=== PATIENT | female | born 1940 | race Caucasian/White ===

== ENCOUNTER 2025-01-23 06:32 | Emergency (ER) | payer OTHER ==
--- OUTSIDE RECORDS SUMMARY | 2025-01-23 06:46 | XMS REPORT | Continuity of Care Document ---
Author Name Unknown Address [address] [place] [address] [facility] Address [address] [place] [address] Care Team Providers Care Senior Bioinformatics Scientist Name Role Phone PCP, PATIENT DOES NOT HAVE A Primary Care Physic florencia Unavailable SYSTEM, PROVIDER NOT IN Attending Clinician Unav ailable CHUCKY HEATH Attending Clinician Unavailable KIANA BURNETT Attending Clinician Unavailable TANIA GARCIA Attending Clinician Unavaila VIDAL Andrade Attending Clinician Unavailable ADELINE ELLSWORTH Attending Clinician UnaAMAURI Cardona Attending Clinician UnavailTAYA Gillespie Attending Clinician UnavailSREEKANTH Mccain Attending Clinician Unavailable LEVAR GRACIA Attending Clinician Unavailable TRACY JIN Attending Clinician Unavailable Tracy Sena S Attending Clinician CHUCKY HEATH Admitting Clinician Unavailable TAYA ZURITA Admitting Clinician Unavaila TRACY Gan Admitting Clinician Unavailable Payers Payer Name Policy Type Policy Number Effective Date Expirati on Date Source MEDICARE PART A AND B [id number] 2004 00:00:00 [employer] [id number] 2015 00:00:00 MEDICARE PART A \T\ B [id number] 2004 00:00:00 PRINCE HERNADEZ [id number] 2004 00:00:00 Problems Condition Name Condition Details Condition Category Status Onset Date Resolution Date Last Treatment Date Treating Clinician Comments Source No known active problems No known active problems Disease [facility] Allergies, Adverse Reactions, Alerts Allergy Name Allergy Type Status Severity Reaction(s) Onset Date Inactive Date Treating Clinician Comments Source SULFAMET HOXAZOLE -TRIMETH OPRIM DRUG Active Hives 5-0 6-13 00:00: 00 MD Demarco browne SULFAMET HOXAZOLE -TRIMETH OPRIM DRUG Active Hives 5-0 6-13 00:00: 00 MD Demarco browne SULFAMET HOXAZOLE -TRIMETH OPRIM DRUG Active Hives 5-0 6-13 00:00: 00 MD Demarco browne SULFAMET HOXAZOLE -TRIMETH OPRIM DRUG Active Hives 5-0 6-13 00:00: 00 MD Demarco browne SULFAMET HOXAZOLE -TRIMETH OPRIM DRUG Active Hives 5-0 6-13 00:00: 00 MD Demarco browne SULFAMET HOXAZOLE -TRIMETH OPRIM DRUG Active Hives 5-0 6-13 00:00: 00 MD Demarco browne SULFAMET HOXAZOLE -TRIMETH OPRIM DRUG Active Hives 5-0 6-13 00:00: 00 MD Demarco browne SULFAMET HOXAZOLE -TRIMETH OPRIM DRUG Active Hives 5-0 6-13 00:00: 00 MD Demarco browne SULFAMET HOXAZOLE -TRIMETH OPRIM DRUG Active Hives 5-0 6-13 00:00: 00 MD Demarco browne SULFAMET HOXAZOLE -TRIMETH OPRIM DRUG Active Hives 5-0 6-13 00:00: 00 MD Demarco borwne SULFAMET HOXAZOLE -TRIMETH OPRIM DRUG Active Hives 5-0 6-13 00:00: 00 MD Demarco browne SULFAMET HOXAZOLE -TRIMETH OPRIM DRUG Active Hives 5-0 6-13 00:00: 00 MD Demarco browne SULFAMET HOXAZOLE -TRIMETH OPRIM DRUG Active Hives 5-0 6-13 00:00: 00 MD Demarco browne SULFAMET HOXAZOLE -TRIMETH OPRIM DRUG Active Hives 5-0 6-13 00:00: 00 MD Demarco browne SULFAMET HOXAZOLE -TRIMETH OPRIM DRUG Active Hives 5-0 6-13 00:00: 00 MD Demarco browne SULFAMET HOXAZOLE -TRIMETH OPRIM DRUG Active Hives 5-0 6-13 00:00: 00 MD Demarco browne SULFAMET HOXAZOLE -TRIMETH OPRIM DRUG Active Hives 5-0 6-13 00:00: 00 MD Demarco browne SULFAMET HOXAZOLE -TRIMETH OPRIM DRUG Active Hives 5-0 6-13 00:00: 00 MD Demarco browne OXYCODON E DRUG INGREDI Active High Nausea 5-0 2-19 00:00: 00 MD Demarco browne OXYCODON E DRUG INGREDI Active High Nausea 5-0 2-19 00:00: 00 MD Demarco browne OXYCODON E DRUG INGREDI Active High Nausea 5-0 2-19 00:00: 00 MD Demarco browne OXYCODON E DRUG INGREDI Active High Nausea 5-0 2-19 00:00: 00 MD Demarco browne OXYCODON E DRUG INGREDI Active High Nausea 5-0 2-19 00:00: 00 MD Demarco browne OXYCODON E DRUG INGREDI Active High Nausea 5-0 2-19 00:00: 00 MD Demarco browne OXYCODON E DRUG INGREDI Active High Nausea 5-0 2-19 00:00: 00 MD Demarco browne OXYCODON E DRUG INGREDI Active High Nausea 5-0 2-19 00:00: 00 MD Demarco browne OXYCODON E DRUG INGREDI Active High Nausea 5-0 2-19 00:00: 00 MD Demarco browne OXYCODON E DRUG INGREDI Active High Nausea 5-0 2-19 00:00: 00 MD Demarco browne OXYCODON E DRUG INGREDI Active High Nausea 5-0 2-19 00:00: 00 MD Deamrco browne OXYCODON E DRUG INGREDI Active High Nausea 5-0 2-19 00:00: 00 MD Demarco browne OXYCODON E DRUG INGREDI Active High Nausea 5-0 2-19 00:00: 00 MD Demarco browne OXYCODON E DRUG INGREDI Active High Nausea 5-0 2-19 00:00: 00 MD Demarco browne OXYCODON E DRUG INGREDI Active High Nausea 5-0 2-19 00:00: 00 MD Demarco browne OXYCODON E DRUG INGREDI Active High Nausea 2025-0 2-19 00:00: 00 Andnicole browne OXYCODON E DRUG INGREDI Active High Nausea 2025-0 2-19 00:00: 00 Andnicole browne OXYCODON E DRUG INGREDI Active High Nausea 2025-0 2-19 00:00: 00 Andnicole browne OXYCODON E DRUG INGREDI Active High Nausea 2025-0 2-19 00:00: 00 MD Demarco browne OXYCODON E DRUG INGREDI Active High Nausea 2025-0 2-19 00:00: 00 Andnicole browne OXYCODON E DRUG INGREDI Active High Nausea 5-0 2-19 00:00: 00 MD Demarco browne OXYCODON E DRUG INGREDI Active High Nausea 5-0 2-19 00:00: 00 MD Demarco browne OXYCODON E DRUG INGREDI Active High Nausea 5-0 2-19 00:00: 00 MD Demarco browne OXYCODON E DRUG INGREDI Active High Nausea 5-0 2-19 00:00: 00 MD Demarco browne OXYCODON E DRUG INGREDI Active High Nausea 2025-0 2-19 00:00: 00 MD Demarco browne OXYCODON E DRUG INGREDI Active High Nausea 2025-0 2-19 00:00: 00 MD Demarco browne OXYCODON E DRUG INGREDI Active High Nausea 2025-0 2-19 00:00: 00 MD Demarco browne OXYCODON E DRUG INGREDI Active High Nausea 2025-0 2-19 00:00: 00 MD Demarco browne OXYCODON E DRUG INGREDI Active High Nausea 2025-0 2-19 00:00: 00 MD Demarco browne OXYCODON E DRUG INGREDI Active High Nausea 2025-0 2-19 00:00: 00 MD Demarco browne OXYCODON E DRUG INGREDI Active High Nausea 2025-0 2-19 00:00: 00 MD Demarco browne OXYCODON E DRUG INGREDI Active High Nausea 2025-0 2-19 00:00: 00 MD Demarco browne OXYCODON E DRUG INGREDI Active High Nausea 2025-0 2-19 00:00: 00 MD Demarco browne OXYCODON E DRUG INGREDI Active High Nausea 2025-0 2-19 00:00: 00 MD Demarco browne OXYCODON E DRUG INGREDI Active High Nausea 2025-0 2-19 00:00: 00 MD Demarco browne OXYCODON E DRUG INGREDI Active High Nausea 2025-0 2-19 00:00: 00 MD Demarco browne OXYCODON E DRUG INGREDI Active High Nausea 2025-0 2-19 00:00: 00 Andnicole browne OXYCODON E DRUG INGREDI Active High Nausea 2025-0 2-19 00:00: 00 MD Demarco browne OXYCODON E DRUG INGREDI Active High Nausea 2025-0 2-19 00:00: 00 Andnicole browne OXYCODON E DRUG INGREDI Active High Nausea 2025-0 2-19 00:00: 00 MD Demarco browne OXYCODON E DRUG INGREDI Active High Nausea 5-0 2-19 00:00: 00 MD Demarco browne OXYCODON E DRUG INGREDI Active High Nausea 2025-0 2-19 00:00: 00 MD Demarco browne OXYCODON E DRUG INGREDI Active High Nausea 2025-0 2-19 00:00: 00 MD Demarco browne OXYCODON E DRUG INGREDI Active High Nausea 2025-0 2-19 00:00: 00 MD Demarco browne OXYCODON E DRUG INGREDI Active High Nausea 2025-0 2-19 00:00: 00 MD Demarco browne OXYCODON E DRUG INGREDI Active High Nausea 2025-0 2-19 00:00: 00 MD Demarco browne OXYCODON E DRUG INGREDI Active High Nausea 2025-0 2-19 00:00: 00 MD Demarco browne OXYCODON E DRUG INGREDI Active High Nausea 2025-0 2-19 00:00: 00 MD Demarco browne OXYCODON E DRUG INGREDI Active High Nausea 2025-0 2-19 00:00: 00 MD Demarco browne OXYCODON E DRUG INGREDI Active High Nausea 2025-0 2-19 00:00: 00 MD Demarco browne OXYCODON E DRUG INGREDI Active High Nausea 2025-0 2-19 00:00: 00 MD Demarco browne OXYCODON E DRUG INGREDI Active High Nausea 2025-0 2-19 00:00: 00 MD Anderso n OXYCODON E DRUG INGREDI Active High Nausea 2025-0 2-19 00:00: 00 Andnicole browne OXYCODON E DRUG INGREDI Active Nausea 2025-0 2-19 00:00: 00 Andnicole browne OXYCODON E DRUG INGREDI Active Nausea 5-0 2-19 00:00: 00 Andnicole browne OXYCODON E DRUG INGREDI Active Nausea 2025-0 2-19 00:00: 00 Andnicole browne OXYCODON E DRUG INGREDI Active Nausea 2025-0 2-19 00:00: 00 MD Demarco browne OXYCODON E DRUG INGREDI Active Nausea 2025-0 2-19 00:00: 00 Andnicole browne OXYCODON E DRUG INGREDI Active Nausea 5-0 2-19 00:00: 00 MD Demarco browne OXYCODON E DRUG INGREDI Active Nausea 5-0 2-19 00:00: 00 MD Demarco browne OXYCODON E DRUG INGREDI Active High Nausea 5-0 2-19 00:00: 00 MD Demarco browne OXYCODON E DRUG INGREDI Active High Nausea 5-0 2-19 00:00: 00 MD Demarco browne OXYCODON E DRUG INGREDI Active High Nausea 2025-0 2-19 00:00: 00 MD Demarco browne OXYCODON E DRUG INGREDI Active High Nausea 2025-0 2-19 00:00: 00 MD Demarco browne OXYCODON E DRUG INGREDI Active High Nausea 2025-0 2-19 00:00: 00 MD Demarco browne OXYCODON E DRUG INGREDI Active High Nausea 2025-0 2-19 00:00: 00 MD Demarco browne OXYCODON E DRUG INGREDI Active High Nausea 2025-0 2-19 00:00: 00 MD Demarco browne OXYCODON E DRUG INGREDI Active High Nausea 2025-0 2-19 00:00: 00 MD Demarco browne OXYCODON E DRUG INGREDI Active High Nausea 2025-0 2-19 00:00: 00 MD Demarco browne OXYCODON E DRUG INGREDI Active High Nausea 2025-0 2-19 00:00: 00 MD Demarco browne OXYCODON E DRUG INGREDI Active High Nausea 2025-0 2-19 00:00: 00 MD Demarco browne OXYCODON E DRUG INGREDI Active High Nausea 5-0 2-19 00:00: 00 MD Demacro browne OXYCODON E DRUG INGREDI Active High Nausea 5-0 2-19 00:00: 00 MD Demarco browne OXYCODON E DRUG INGREDI Active High Nausea 5-0 2-19 00:00: 00 MD Demarco browne OXYCODON E DRUG INGREDI Active High Nausea 5-0 2-19 00:00: 00 MD Demarco browne OXYCODON E DRUG INGREDI Active High Nausea 5-0 2-19 00:00: 00 MD Demarco browne OXYCODON E DRUG INGREDI Active High Nausea 5-0 2-19 00:00: 00 MD Demarco browne Nitrofur antoin Monohyd/ M-Cryst Propensi ty to adverse reaction s Active Anaphylaxis 2021-1 0-04 00:00: 00 [facility] Penicill ins Propensi ty to adverse reaction s Active Hives 2021-1 0-04 00:00: 00 [facility] Sulfa (Sulfona mide Antibiot ics) Propensi ty to adverse reaction s Active Rash 2021-1 0-04 00:00: 00 [facility] NITROFUR ANTOIN MONOHYD/ M-CRYST DRUG Active Anaphylaxis 2021-1 0-04 00:00: 00 [facility] PENICILL INS Drug Class Active Hives 2021-1 0-04 00:00: 00 [facility] SULFA (SULFONA MIDE ANTIBIOT ICS) Drug Class Active Rash 2-1 0-04 00:00: 00 [facility] TRAMADOL DRUG INGREDI Active 2020-0 2-10 00:00: 00 MD Demarco browne TRAMADOL DRUG INGREDI Active 2020-0 2-10 00:00: 00 MD Demarco browne TRAMADOL DRUG INGREDI Active Low Nausea 2020-0 2-10 00:00: 00 MD Demarco browne TRAMADOL DRUG INGREDI Active Low Nausea 2020-0 2-10 00:00: 00 MD Demarco browne TRAMADOL DRUG INGREDI Active Low Nausea 2020-0 2-10 00:00: 00 MD Demarco browne TRAMADOL DRUG INGREDI Active Low Nausea 2020-0 2-10 00:00: 00 MD Demarco browne TRAMADOL DRUG INGREDI Active Low Nausea 2020-0 2-10 00:00: 00 MD Demarco browne TRAMADOL DRUG INGREDI Active Low Nausea 2020-0 2-10 00:00: 00 MD Demarco browne TRAMADOL DRUG INGREDI Active Low Nausea 2020-0 2-10 00:00: 00 Andnicole browne TRAMADOL DRUG INGREDI Active Low Nausea 2020-0 2-10 00:00: 00 MD Demarco browne TRAMADOL DRUG INGREDI Active 2020-0 2-10 00:00: 00 MD Demarco browne TRAMADOL DRUG INGREDI Active Low Nausea 2020-0 2-10 00:00: 00 MD Demarco browne TRAMADOL DRUG INGREDI Active Low Nausea 2020-0 2-10 00:00: 00 MD Demarco browne TRAMADOL DRUG INGREDI Active Low Nausea 2020-0 2-10 00:00: 00 MD Demarco browne TRAMADOL DRUG INGREDI Active Low Nausea 2020-0 2-10 00:00: 00 MD Demarco browne TRAMADOL DRUG INGREDI Active Low Nausea 2020-0 2-10 00:00: 00 MD Demarco browne TRAMADOL DRUG INGREDI Active Low Nausea 2020-0 2-10 00:00: 00 MD Demarco browne TRAMADOL DRUG INGREDI Active Low Nausea 2020-0 2-10 00:00: 00 MD Demarco browne TRAMADOL DRUG INGREDI Active Low Nausea 2020-0 2-10 00:00: 00 MD Demarco browne TRAMADOL DRUG INGREDI Active 2020-0 2-10 00:00: 00 MD Demarco browne TRAMADOL DRUG INGREDI Active Low Nausea 2020-0 2-10 00:00: 00 MD Demarco browne TRAMADOL DRUG INGREDI Active Low Nausea 2020-0 2-10 00:00: 00 MD Demarco browne TRAMADOL DRUG INGREDI Active Low Nausea 2020-0 2-10 00:00: 00 MD Demarco browne TRAMADOL DRUG INGREDI Active Low Nausea 2020-0 2-10 00:00: 00 MD Demarco browne TRAMADOL DRUG INGREDI Active Low Nausea 2020-0 2-10 00:00: 00 MD Demarco browne TRAMADOL DRUG INGREDI Active Low Nausea 2020-0 2-10 00:00: 00 MD Demarco browne TRAMADOL DRUG INGREDI Active Low Nausea 2020-0 2-10 00:00: 00 MD Demarco browne TRAMADOL DRUG INGREDI Active Low Nausea 2020-0 2-10 00:00: 00 MD Demarco browne TRAMADOL DRUG INGREDI Active 2020-0 2-10 00:00: 00 MD Demarco browne TRAMADOL DRUG INGREDI Active Low Nausea 2020-0 2-10 00:00: 00 MD Demarco browne TRAMADOL DRUG INGREDI Active Low Nausea 2020-0 2-10 00:00: 00 MD Demarco browne TRAMADOL DRUG INGREDI Active Low Nausea 2020-0 2-10 00:00: 00 MD Demarco browne TRAMADOL DRUG INGREDI Active Low Nausea 2020-0 2-10 00:00: 00 MD Demarco browne TRAMADOL DRUG INGREDI Active Low Nausea 2020-0 2-10 00:00: 00 MD Demarco browne TRAMADOL DRUG INGREDI Active Low Nausea 2020-0 2-10 00:00: 00 MD Demarco browne TRAMADOL DRUG INGREDI Active Low Nausea 2020-0 2-10 00:00: 00 MD Demarco browne TRAMADOL DRUG INGREDI Active Low Nausea 2020-0 2-10 00:00: 00 MD Dmearco browne TRAMADOL DRUG INGREDI Active Low Nausea 2020-0 2-10 00:00: 00 MD Demarco browne TRAMADOL DRUG INGREDI Active 2020-0 2-10 00:00: 00 MD Demarco browne TRAMADOL DRUG INGREDI Active Low Nausea 2020-0 2-10 00:00: 00 MD Demarco browne TRAMADOL DRUG INGREDI Active Low Nausea 2020-0 2-10 00:00: 00 MD Demarco browne TRAMADOL DRUG INGREDI Active Low Nausea 2020-0 2-10 00:00: 00 MD Demarco browne TRAMADOL DRUG INGREDI Active Low Nausea 2020-0 2-10 00:00: 00 MD Demarco browne TRAMADOL DRUG INGREDI Active Low Nausea 2020-0 2-10 00:00: 00 MD Demarco browne TRAMADOL DRUG INGREDI Active Low Nausea 2020-0 2-10 00:00: 00 MD Demarco browne TRAMADOL DRUG INGREDI Active Low Nausea 2020-0 2-10 00:00: 00 MD Demarco browne TRAMADOL DRUG INGREDI Active 2020-0 2-10 00:00: 00 MD Demarco browne TRAMADOL DRUG INGREDI Active Low Nausea 2020-0 2-10 00:00: 00 MD Demarco browne TRAMADOL DRUG INGREDI Active Low Nausea 2020-0 2-10 00:00: 00 MD Demarco browne TRAMADOL DRUG INGREDI Active Low Nausea 2020-0 2-10 00:00: 00 MD Demarco browne TRAMADOL DRUG INGREDI Active Low Nausea 2020-0 2-10 00:00: 00 MD Demarco browne TRAMADOL DRUG INGREDI Active Low Nausea 2020-0 2-10 00:00: 00 MD Demarco browne TRAMADOL DRUG INGREDI Active Low Nausea 2020-0 2-10 00:00: 00 MD Demarco browne TRAMADOL DRUG INGREDI Active 2020-0 2-10 00:00: 00 MD Demarco browne TRAMADOL DRUG INGREDI Active Low Nausea 2020-0 2-10 00:00: 00 MD Demarco browne TRAMADOL DRUG INGREDI Active Low Nausea 2020-0 2-10 00:00: 00 MD Demarco browne TRAMADOL DRUG INGREDI Active Low Nausea 2020-0 2-10 00:00: 00 MD Demarco browne TRAMADOL DRUG INGREDI Active Low Nausea 2020-0 2-10 00:00: 00 MD Demarco browne TRAMADOL DRUG INGREDI Active Low Nausea 2020-0 2-10 00:00: 00 MD Demarco browne TRAMADOL DRUG INGREDI Active Low Nausea 2020-0 2-10 00:00: 00 MD Demarco browne TRAMADOL DRUG INGREDI Active Low Nausea 2020-0 2-10 00:00: 00 MD Demarco browne TRAMADOL DRUG INGREDI Active 2020-0 2-10 00:00: 00 MD Demarco browne TRAMADOL DRUG INGREDI Active Low Nausea 2020-0 2-10 00:00: 00 MD Demarco browne TRAMADOL DRUG INGREDI Active 2020-0 2-10 00:00: 00 MD Demarco browne TRAMADOL DRUG INGREDI Active 2020-0 2-10 00:00: 00 MD Demarco browne TRAMADOL DRUG INGREDI Active 2020-0 2-10 00:00: 00 MD Demarco browne TRAMADOL DRUG INGREDI Active 2020-0 2-10 00:00: 00 MD Demarco browne TRAMADOL DRUG INGREDI Active 2020-0 2-10 00:00: 00 MD Demarco browne TRAMADOL DRUG INGREDI Active 2020-0 2-10 00:00: 00 MD Demarco browne TRAMADOL DRUG INGREDI Active 2020-0 2-10 00:00: 00 MD Demarco browne TRAMADOL DRUG INGREDI Active 2020-0 2-10 00:00: 00 MD Demarco browne TRAMADOL DRUG INGREDI Active 2020-0 2-10 00:00: 00 MD Demarco browne TRAMADOL DRUG INGREDI Active 2020-0 2-10 00:00: 00 MD Demarco browne TRAMADOL DRUG INGREDI Active 2020-0 2-10 00:00: 00 MD Demarco browne TRAMADOL DRUG INGREDI Active 2020-0 2-10 00:00: 00 MD Demarco browne TRAMADOL DRUG INGREDI Active 2020-0 2-10 00:00: 00 MD Demarco browne TRAMADOL DRUG INGREDI Active 2020-0 2-10 00:00: 00 MD Demarco browne TRAMADOL DRUG INGREDI Active 2020-0 2-10 00:00: 00 MD Demarco browne TRAMADOL DRUG INGREDI Active 2020-0 2-10 00:00: 00 MD Demarco browne TRAMADOL DRUG INGREDI Active 2020-0 2-10 00:00: 00 MD Demarco browne TRAMADOL DRUG INGREDI Active 2020-0 2-10 00:00: 00 MD Demarco browne TRAMADOL DRUG INGREDI Active 2020-0 2-10 00:00: 00 MD Demarco browne TRAMADOL DRUG INGREDI Active 2020-0 2-10 00:00: 00 MD Demarco browne TRAMADOL DRUG INGREDI Active 2020-0 2-10 00:00: 00 MD Demarco browne TRAMADOL DRUG INGREDI Active 2020-0 2-10 00:00: 00 MD Demarco browne TRAMADOL DRUG INGREDI Active 2020-0 2-10 00:00: 00 MD Demarco browne TRAMADOL DRUG INGREDI Active 2020-0 2-10 00:00: 00 MD Demarco browne TRAMADOL DRUG INGREDI Active 2020-0 2-10 00:00: 00 MD Demarco browne TRAMADOL DRUG INGREDI Active 2020-0 2-10 00:00: 00 MD Demarco browne TRAMADOL DRUG INGREDI Active 2020-0 2-10 00:00: 00 MD Demarco browne TRAMADOL DRUG INGREDI Active Nausea 2020-0 2-10 00:00: 00 MD Demarco browne TRAMADOL DRUG INGREDI Active Nausea 2020-0 2-10 00:00: 00 MD Demarco browne TRAMADOL DRUG INGREDI Active Nausea 2020-0 2-10 00:00: 00 MD Demarco browne TRAMADOL DRUG INGREDI Active Nausea 2020-0 2-10 00:00: 00 MD Demarco browne TRAMADOL DRUG INGREDI Active Nausea 2020-0 2-10 00:00: 00 MD Demarco browne TRAMADOL DRUG INGREDI Active Nausea 2020-0 2-10 00:00: 00 MD Demarco browne TRAMADOL DRUG INGREDI Active Nausea 2020-0 2-10 00:00: 00 MD Demarco browne TRAMADOL DRUG INGREDI Active Nausea 2020-0 2-10 00:00: 00 MD Demarco browne TRAMADOL DRUG INGREDI Active Nausea 2020-0 2-10 00:00: 00 MD Demarco browne TRAMADOL DRUG INGREDI Active Nausea 2020-0 2-10 00:00: 00 MD Demarco browne TRAMADOL DRUG INGREDI Active 2020-0 2-10 00:00: 00 MD Demarco browne TRAMADOL DRUG INGREDI Active Nausea 2020-0 2-10 00:00: 00 MD Demarco browne TRAMADOL DRUG INGREDI Active Nausea 2020-0 2-10 00:00: 00 MD Demarco browne TRAMADOL DRUG INGREDI Active Nausea 2020-0 2-10 00:00: 00 MD Demarco browne TRAMADOL DRUG INGREDI Active Nausea 2020-0 2-10 00:00: 00 MD Demarco browne TRAMADOL DRUG INGREDI Active Nausea 2020-0 2-10 00:00: 00 MD Demarco browne TRAMADOL DRUG INGREDI Active Nausea 2020-0 2-10 00:00: 00 MD Demarco browne TRAMADOL DRUG INGREDI Active Nausea 2020-0 2-10 00:00: 00 MD Demarco browne TRAMADOL DRUG INGREDI Active Nausea 2020-0 2-10 00:00: 00 MD Demarco browne TRAMADOL DRUG INGREDI Active Low Nausea 2020-0 2-10 00:00: 00 MD Demarco browne TRAMADOL DRUG INGREDI Active Low Nausea 2020-0 2-10 00:00: 00 MD Demarco browne TRAMADOL DRUG INGREDI Active Low Nausea 2020-0 2-10 00:00: 00 MD Demarco browne TRAMADOL DRUG INGREDI Active Low Nausea 2020-0 2-10 00:00: 00 MD Demarco browne TRAMADOL DRUG INGREDI Active Low Nausea 2020-0 2-10 00:00: 00 MD Demarco browne TRAMADOL DRUG INGREDI Active 2020-0 2-10 00:00: 00 Andnicole browne TRAMADOL DRUG INGREDI Active Low Nausea 2020-0 2-10 00:00: 00 Andnicole browne TRAMADOL DRUG INGREDI Active Low Nausea 2020-0 2-10 00:00: 00 Andnicole browne TRAMADOL DRUG INGREDI Active Low Nausea 2020-0 2-10 00:00: 00 MD Demarco browne TRAMADOL DRUG INGREDI Active Low Nausea 2020-0 2-10 00:00: 00 MD Demarco browne TRAMADOL DRUG INGREDI Active Low Nausea 2020-0 2-10 00:00: 00 MD Demarco browne TRAMADOL DRUG INGREDI Active Low Nausea 2020-0 2-10 00:00: 00 MD Demarco browne TRAMADOL DRUG INGREDI Active Low Nausea 2020-0 2-10 00:00: 00 MD Demarco browne TRAMADOL DRUG INGREDI Active Low Nausea 2020-0 2-10 00:00: 00 MD Demarco browne TRAMADOL DRUG INGREDI Active Low Nausea 2020-0 2-10 00:00: 00 MD Demarco browne TRAMADOL DRUG INGREDI Active Low Nausea 2020-0 2-10 00:00: 00 MD Demarco browne TRAMADOL DRUG INGREDI Active Low Nausea 2020-0 2-10 00:00: 00 MD Demarco browne TRAMADOL DRUG INGREDI Active Low Nausea 2020-0 2-10 00:00: 00 MD Demarco browne TRAMADOL DRUG INGREDI Active 2020-0 2-10 00:00: 00 MD Demarco browne TRAMADOL DRUG INGREDI Active Low Nausea 2020-0 2-10 00:00: 00 MD Demarco browne TRAMADOL DRUG INGREDI Active Low Nausea 2020-0 2-10 00:00: 00 MD Demarco browne TRAMADOL DRUG INGREDI Active Low Nausea 2020-0 2-10 00:00: 00 MD Demarco browne TRAMADOL DRUG INGREDI Active Low Nausea 2020-0 2-10 00:00: 00 MD Demarco browne [employer] INGREDI Active Low Nausea 2020-0 2-10 00:00: 00 MD Demarco browne [employer]AM[employer] INGREDI Active Low Nausea 2020-0 2-10 00:00: 00 MD Demarco browne [employer]AM[employer] INGREDI Active Low Nausea 2020-0 2-10 00:00: 00 MD Demarco browne TRAM[employer] INGREDI Active Low Nausea 2020-0 2-10 00:00: 00 MD Demarco browne [employer]AM[employer] INGREDI Active Low Nausea 2020-0 2-10 00:00: 00 MD Demarco browne [employer]AM[employer] INGREDI Active Low Nausea 2020-0 2-10 00:00: 00 Andnicole browne TRAM[employer] INGREDI Active 2020-0 2-10 00:00: 00 MD Demarco browne TRAM[employer] INGREDI Active Low Nausea 2020-0 2-10 00:00: 00 MD Demarco browne TRAM[employer]UG INGREDI Active Low Nausea 2020-0 2-10 00:00: 00 MD Demarco browne TRAM[employer] INGREDI Active Low Nausea 2020-0 2-10 00:00: 00 MD Demarco browne TRAM[employer] INGREDI Active Low Nausea 2020-0 2-10 00:00: 00 MD Demarco browne TRAM[employer] INGREDI Active Low Nausea 2020-0 2-10 00:00: 00 MD Demarco browne TRAM[employer] INGREDI Active Low Nausea 2020-0 2-10 00:00: 00 MD Demarco browne TRAM[employer] INGREDI Active Low Nausea 2020-0 2-10 00:00: 00 MD Demarco browne TRAM[employer] INGREDI Active Low Nausea 2020-0 2-10 00:00: 00 MD Demarco browne [employer]AM[employer] INGREDI Active 2020-0 2-10 00:00: 00 MD Demarco browne TRAM[employer] INGREDI Active Low Nausea 2020-0 2-10 00:00: 00 MD Demarco browne TRAM[employer] INGREDI Active Low Nausea 2020-0 2-10 00:00: 00 MD Demarco browne TRAM[employer] INGREDI Active Low Nausea 2020-0 2-10 00:00: 00 MD Demarco browne TRAM[employer] INGREDI Active Low Nausea 2020-0 2-10 00:00: 00 MD Demarco browne TRAM[employer] INGREDI Active Low Nausea 2020-0 2-10 00:00: 00 MD Demarco browne TRAM[employer] INGREDI Active Low Nausea 2020-0 2-10 00:00: 00 MD Demarco browne TRAM[employer] INGREDI Active 2020-0 2-10 00:00: 00 MD Demarco browne [employer]AM[employer] INGREDI Active Low Nausea 2020-0 2-10 00:00: 00 MD Demarco browne [employer]AM[employer] INGREDI Active Low Nausea 2020-0 2-10 00:00: 00 Andnicole browne TRAM[employer] INGREDI Active 2020-0 2-10 00:00: 00 MD Demarco browne TRAM[employer] INGREDI Active Low Nausea 2020-0 2-10 00:00: 00 Andnicole browne TRAM[employer] INGREDI Active Low Nausea 2020-0 2-10 00:00: 00 MD Demarco browne [employer]AM[employer] INGREDI Active Low Nausea 2020-0 2-10 00:00: 00 MD Demarco browne TRAM[employer] INGREDI Active Low Nausea 2020-0 2-10 00:00: 00 MD Demarco browne TRAM[employer] INGREDI Active Low Nausea 2020-0 2-10 00:00: 00 MD Demarco browne TRAM[employer]OL [employer] INGREDI Active Low Nausea 2020-0 2-10 00:00: 00 MD Demarco browne TRAM[employer] INGREDI Active Low Nausea 2020-0 2-10 00:00: 00 MD Demarco browne TRAM[employer] INGREDI Active Low Nausea 2020-0 2-10 00:00: 00 MD Demarco browne TRAM[employer] INGREDI Active Low Nausea 2020-0 2-10 00:00: 00 MD Demarco browne TRAM[employer]UG INGREDI Active Low Nausea 2020-0 2-10 00:00: 00 MD Demarco browne TRAM[employer] INGREDI Active Low Nausea 2020-0 2-10 00:00: 00 MD Demarco browne [employer]AM[employer] INGREDI Active 2020-0 2-10 00:00: 00 MD Demarco browne TRAM[employer] INGREDI Active Low Nausea 2020-0 2-10 00:00: 00 MD Demarco browne TRAM[employer] INGREDI Active Low Nausea 2020-0 2-10 00:00: 00 MD Demarco browne TRAM[employer] INGREDI Active Low Nausea 2020-0 2-10 00:00: 00 MD Demarco browne TRAM[employer]OL [employer] INGREDI Active Low Nausea 2020-0 2-10 00:00: 00 MD Demarco browne TRAM[employer]OL DRUG INGREDI Active Low Nausea 2020-0 2-10 00:00: 00 MD Demarco browne TRAM[employer]OL [employer]UG INGREDI Active Low Nausea 2020-0 2-10 00:00: 00 MD Demarco browne TRAM[employer]OL [employer]UG INGREDI Active Low Nausea 2020-0 2-10 00:00: 00 Andnicole browne [employer]AM[employer] INGREDI Active Low Nausea 2020-0 2-10 00:00: 00 Andnicole browne TRAM[employer] INGREDI Active Low Nausea 2020-0 2-10 00:00: 00 Andnicole browne TRAMADOL DRUG INGREDI Active Low Nausea 2020-0 2-10 00:00: 00 Andnicole browne TRAMADOL DRUG INGREDI Active Low Nausea 2020-0 2-10 00:00: 00 Andnicole browne TRAMADOL DRUG INGREDI Active Low Nausea 2020-0 2-10 00:00: 00 MD Demarco browne TRAMADOL DRUG INGREDI Active 2020-0 2-10 00:00: 00 Andnicole browne TRAMADOL DRUG INGREDI Active Low Nausea 2020-0 2-10 00:00: 00 MD Demarco browne TRAMADOL DRUG INGREDI Active Low Nausea 2020-0 2-10 00:00: 00 Andnicole browne TRAMADOL DRUG INGREDI Active Low Nausea 2020-0 2-10 00:00: 00 MD Demarco browne TRAMADOL DRUG INGREDI Active Low Nausea 2020-0 2-10 00:00: 00 MD Demarco browne TRAMADOL DRUG INGREDI Active Low Nausea 2020-0 2-10 00:00: 00 MD Demarco browne TRAMADOL DRUG INGREDI Active Low Nausea 2020-0 2-10 00:00: 00 MD Demarco browne TRAMADOL DRUG INGREDI Active Low Nausea 2020-0 2-10 00:00: 00 MD Demarco browne TRAMADOL DRUG INGREDI Active Low Nausea 2020-0 2-10 00:00: 00 MD Demarco browne TRAMADOL DRUG INGREDI Active Low Nausea 2020-0 2-10 00:00: 00 MD Demarco browne TRAMADOL DRUG INGREDI Active Low Nausea 2020-0 2-10 00:00: 00 Andnicole browne TRAMADOL DRUG INGREDI Active Low Nausea 2020-0 2-10 00:00: 00 MD Demarco browne TRAMADOL DRUG INGREDI Active 2020-0 2-10 00:00: 00 MD Demarco browne TRAMADOL DRUG INGREDI Active Low Nausea 2020-0 2-10 00:00: 00 MD Demarco browne TRAMADOL DRUG INGREDI Active Low Nausea 2020-0 2-10 00:00: 00 MD Demarco browne TRAMADOL DRUG INGREDI Active Low Nausea 2020-0 2-10 00:00: 00 MD Demraco browne TRAMADOL DRUG INGREDI Active Low Nausea 2020-0 2-10 00:00: 00 Andnicole browne TRAMADOL DRUG INGREDI Active Low Nausea 2020-0 2-10 00:00: 00 Andnicole browne TRAMADOL DRUG INGREDI Active Low Nausea 2020-0 2-10 00:00: 00 Andnicole browne TRAMADOL DRUG INGREDI Active Low Nausea 2020-0 2-10 00:00: 00 MD Demarco browne TRAMADOL DRUG INGREDI Active Low Nausea 2020-0 2-10 00:00: 00 MD Demarco browne TRAMADOL DRUG INGREDI Active Low Nausea 2020-0 2-10 00:00: 00 MD Demarco browne TRAMADOL DRUG INGREDI Active Low Nausea 2020-0 2-10 00:00: 00 MD Demarco browne TRAMADOL DRUG INGREDI Active Low Nausea 2020-0 2-10 00:00: 00 MD Demarco browne TRAMADOL DRUG INGREDI Active Low Nausea 2020-0 2-10 00:00: 00 MD Demarco browne TRAMADOL DRUG INGREDI Active Low Nausea 2020-0 2-10 00:00: 00 MD Demarco browne TRAMADOL DRUG INGREDI Active 2020-0 2-10 00:00: 00 MD Demarco browne TRAMADOL DRUG INGREDI Active Low Nausea 2020-0 2-10 00:00: 00 MD Demarco browne TRAMADOL DRUG INGREDI Active Low Nausea 2020-0 2-10 00:00: 00 MD Demarco browne TRAMADOL DRUG INGREDI Active Low Nausea 2020-0 2-10 00:00: 00 MD Demarco browne TRAMADOL DRUG INGREDI Active Low Nausea 2020-0 2-10 00:00: 00 MD Demarco browne TRAMADOL DRUG INGREDI Active Low Nausea 2020-0 2-10 00:00: 00 MD Demarco browne TRAMADOL DRUG INGREDI Active Low Nausea 2020-0 2-10 00:00: 00 MD Demarco browne TRAMADOL DRUG INGREDI Active Low Nausea 2020-0 2-10 00:00: 00 MD Demarco browne TRAMADOL DRUG INGREDI Active Low Nausea 2020-0 2-10 00:00: 00 MD Demarco browne TRAMADOL DRUG INGREDI Active Low Nausea 2020-0 2-10 00:00: 00 MD Demarco browne TRAMADOL DRUG INGREDI Active Low Nausea 2020-0 2-10 00:00: 00 MD Demarco browne TRAMADOL DRUG INGREDI Active 2020-0 2-10 00:00: 00 Andnicole browne TRAMADOL DRUG INGREDI Active Low Nausea 2020-0 2-10 00:00: 00 Andnicole browne TRAMADOL DRUG INGREDI Active Low Nausea 2020-0 2-10 00:00: 00 Andnicole browne TRAMADOL DRUG INGREDI Active Low Nausea 2020-0 2-10 00:00: 00 MD Demarco browne TRAMADOL DRUG INGREDI Active Low Nausea 2020-0 2-10 00:00: 00 MD Demarco browne TRAMADOL DRUG INGREDI Active Low Nausea 2020-0 2-10 00:00: 00 MD Demarco browne TRAMADOL DRUG INGREDI Active Low Nausea 2020-0 2-10 00:00: 00 MD Demarco browne TRAMADOL DRUG INGREDI Active Low Nausea 2020-0 2-10 00:00: 00 MD Demarco browne TRAMADOL DRUG INGREDI Active Low Nausea 2020-0 2-10 00:00: 00 MD Demarco browne TRAMADOL DRUG INGREDI Active Low Nausea 2020-0 2-10 00:00: 00 MD Demarco browne TRAMADOL DRUG INGREDI Active Low Nausea 2020-0 2-10 00:00: 00 MD Demarco browne TRAMADOL DRUG INGREDI Active Low Nausea 2020-0 2-10 00:00: 00 MD Demarco browne TRAMADOL DRUG INGREDI Active Low Nausea 2020-0 2-10 00:00: 00 MD Demarco browne TRAMADOL DRUG INGREDI Active 2020-0 2-10 00:00: 00 MD Demarco browne TRAMADOL DRUG INGREDI Active Low Nausea 2020-0 2-10 00:00: 00 MD Demarco browne TRAMADOL DRUG INGREDI Active Low Nausea 2020-0 2-10 00:00: 00 MD Demarco browne TRAMADOL DRUG INGREDI Active Low Nausea 2020-0 2-10 00:00: 00 MD Demarco browne TRAMADOL DRUG INGREDI Active Low Nausea 2020-0 2-10 00:00: 00 MD Demarco browne TRAMADOL DRUG INGREDI Active Low Nausea 2020-0 2-10 00:00: 00 MD Demarco browne TRAMADOL DRUG INGREDI Active Low Nausea 2020-0 2-10 00:00: 00 MD Demarco browne TRAMADOL DRUG INGREDI Active Low Nausea 2020-0 2-10 00:00: 00 MD Demarco browne TRAMADOL DRUG INGREDI Active Low Nausea 2020-0 2-10 00:00: 00 Andnicole browne TRAMADOL DRUG INGREDI Active Low Nausea 2020-0 2-10 00:00: 00 MD Demarco browne TRAMADOL DRUG INGREDI Active Low Nausea 2020-0 2-10 00:00: 00 Andnicole browne TRAMADOL DRUG INGREDI Active Low Nausea 2020-0 2-10 00:00: 00 MD Demarco browne TRAMADOL DRUG INGREDI Active Low Nausea 2020-0 2-10 00:00: 00 MD Demarco browne TRAMADOL DRUG INGREDI Active Low Nausea 2020-0 2-10 00:00: 00 MD Demarco browne TRAMADOL DRUG INGREDI Active Low Nausea 2020-0 2-10 00:00: 00 MD Demarco browne TRAMADOL DRUG INGREDI Active Low Nausea 2020-0 2-10 00:00: 00 MD Demarco browne TRAMADOL DRUG INGREDI Active 2020-0 2-10 00:00: 00 MD Demarco browne TRAMADOL DRUG INGREDI Active Low Nausea 2020-0 2-10 00:00: 00 MD Demarco browne TRAMADOL DRUG INGREDI Active Low Nausea 2020-0 2-10 00:00: 00 MD Demarco browne TRAMADOL DRUG INGREDI Active Low Nausea 2020-0 2-10 00:00: 00 MD Demarco browne TRAMADOL DRUG INGREDI Active Low Nausea 2020-0 2-10 00:00: 00 MD Demarco browne TRAMADOL DRUG INGREDI Active Low Nausea 2020-0 2-10 00:00: 00 MD Demarco browne TRAMADOL DRUG INGREDI Active Low Nausea 2020-0 2-10 00:00: 00 MD Demarco browne TRAMADOL DRUG INGREDI Active Low Nausea 2020-0 2-10 00:00: 00 MD Demarco browne TRAMADOL DRUG INGREDI Active Low Nausea 2020-0 2-10 00:00: 00 MD Demarco browne TRAMADOL DRUG INGREDI Active Low Nausea 2020-0 2-10 00:00: 00 MD Demarco browne TRAMADOL DRUG INGREDI Active 2020-0 2-10 00:00: 00 MD Demarco browne TRAMADOL DRUG INGREDI Active Low Nausea 2020-0 2-10 00:00: 00 MD Demarco browne TRAMADOL DRUG INGREDI Active Low Nausea 2020-0 2-10 00:00: 00 MD Demarco browne TRAMADOL DRUG INGREDI Active Low Nausea 2020-0 2-10 00:00: 00 MD Demarco browne TRAMADOL DRUG INGREDI Active Low Nausea 2020-0 2-10 00:00: 00 Andnicole browne TRAMADOL DRUG INGREDI Active Low Nausea 2020-0 2-10 00:00: 00 Andnicole browne TRAMADOL DRUG INGREDI Active Low Nausea 2020-0 2-10 00:00: 00 MD Demarco browne TRAMADOL DRUG INGREDI Active Low Nausea 2020-0 2-10 00:00: 00 MD Demarco browne TRAMADOL DRUG INGREDI Active Low Nausea 2020-0 2-10 00:00: 00 MD Demarco browne TRAMADOL DRUG INGREDI Active Low Nausea 2020-0 2-10 00:00: 00 MD Demarco browne TRAMADOL DRUG INGREDI Active Low Nausea 2020-0 2-10 00:00: 00 MD Demarco browne TRAMADOL DRUG INGREDI Active 2020-0 2-10 00:00: 00 MD Demarco browne TRAMADOL DRUG INGREDI Active Low Nausea 2020-0 2-10 00:00: 00 MD Demarco browne TRAMADOL DRUG INGREDI Active Low Nausea 2020-0 2-10 00:00: 00 MD Demarco browne TRAMADOL DRUG INGREDI Active Low Nausea 2020-0 2-10 00:00: 00 MD Demarco browne TRAMADOL DRUG INGREDI Active Low Nausea 2020-0 2-10 00:00: 00 MD Demarco browne TRAMADOL DRUG INGREDI Active Low Nausea 2020-0 2-10 00:00: 00 MD Demarco browne TRAMADOL DRUG INGREDI Active Low Nausea 2020-0 2-10 00:00: 00 MD Demarco browne TRAMADOL DRUG INGREDI Active Low Nausea 2020-0 2-10 00:00: 00 MD Demarco browne TRAMADOL DRUG INGREDI Active Low Nausea 2020-0 2-10 00:00: 00 MD Demarco browne TRAMADOL DRUG INGREDI Active Low Nausea 2020-0 2-10 00:00: 00 MD Demarco browne TRAMADOL DRUG INGREDI Active Low Nausea 2020-0 2-10 00:00: 00 MD Demarco browne NITROFUR ANTOIN MONOHYD/ M-CRYST DRUG Active High Anaphylaxis 2016-1 0-19 00:00: 00 MD Demarco browne [facility] Drug Class Active Low Rash 2015-04 00:00: 00 Andnicole browne SULFA (SULFONA MIDE ANTIBIOT ICS) Drug Class Active Low Hives 2015-04 00:00: 00 MD Demarco browne [facility] Drug Class Active 2015-04 00:00: 00 Andnicole browne NITROFUR ANTOIN MONOHYD/ M-CRYST DRUG Active High Anaphylaxis 2015-04 00:00: 00 MD Demarco browne [facility] Drug Class Active Low Rash 2015-04 00:00: 00 Andnicole browne SULFA (SULFONA MIDE ANTIBIOT ICS) Drug Class Active Low Hives 2015-04 00:00: 00 MD Demarco browne NITROFUR ANTOIN MONOHYD/ M-CRYST DRUG Active High Anaphylaxis 2015-04 00:00: 00 MD Demarco [facility] Drug Class Active Low Rash 2015-04 00:00: 00 MD Demarco browne SULFA (SULFONA MIDE ANTIBIOT ICS) Drug Class Active Low Hives 2015-04 00:00: 00 MD Demarco browne SULFA (SULFONA MIDE ANTIBIOT ICS) Drug Class Active 2015-04 00:00: 00 MD Demarco browne NITROFUR ANTOIN MONOHYD/ M-CRYST DRUG Active High Anaphylaxis 2015-04 00:00: 00 MD Demarco browne [facility] Drug Class Active Low Rash 2015-04 00:00: 00 MD Demarco browne SULFA (SULFONA MIDE ANTIBIOT ICS) Drug Class Active Low Hives 2015-04 00:00: 00 MD Demarco browne NITROFUR ANTOIN MONOHYD/ M-CRYST DRUG Active High Anaphylaxis 2015-04 00:00: 00 MD Demarco browne [facility] Drug Class Active Low Rash 2015-04 00:00: 00 Andnicole browne SULFA (SULFONA MIDE ANTIBIOT ICS) Drug Class Active Low Hives 2015-04 00:00: 00 MD Demarco browne NITROFUR ANTOIN MONOHYD/ M-CRYST DRUG Active High Anaphylaxis 2015-04 00:00: 00 MD Demarco browne [facility] Drug Class Active Low Rash 2015-04 00:00: 00 Andnicole browne SULFA (SULFONA MIDE ANTIBIOT ICS) Drug Class Active Low Hives 2015-04 00:00: 00 Andnicole browne NITROFUR ANTOIN MONOHYD/ M-CRYST DRUG Active High Anaphylaxis 2015-04 00:00: 00 Andnicole browne [facility] Drug Class Active Low Rash 2015-04 00:00: 00 Andnicole browne SULFA (SULFONA MIDE ANTIBIOT ICS) Drug Class Active Low Hives 2015-04 00:00: 00 Andnicole browne NITROFUR ANTOIN MONOHYD/ M-CRYST DRUG Active High Anaphylaxis 2015-04 00:00: 00 MD Demarco browne [facility] Drug Class Active Low Rash 2015-04 00:00: 00 Andnicole browne SULFA (SULFONA MIDE ANTIBIOT ICS) Drug Class Active Low Hives 2015-04 00:00: 00 Andnicole browne NITROFUR ANTOIN MONOHYD/ M-CRYST DRUG Active High Anaphylaxis 2015-04 00:00: 00 MD Demarco browne [facility] Drug Class Active Low Rash 2015-04 00:00: 00 MD Demarco browne SULFA (SULFONA MIDE ANTIBIOT ICS) Drug Class Active Low Hives 2015-04 00:00: 00 MD Demarco browne NITROFUR ANTOIN MONOHYD/ M-CRYST DRUG Active High Anaphylaxis 2015-04 00:00: 00 MD Demarco browne [facility] Drug Class Active Low Rash 2015-04 00:00: 00 Andnicole browne SULFA (SULFONA MIDE ANTIBIOT ICS) Drug Class Active Low Hives 2015-04 00:00: 00 Andnicole browne NITROFUR ANTOIN MONOHYD/ M-CRYST DRUG Active 2015-04 00:00: 00 Andnicole browne NITROFUR ANTOIN MONOHYD/ M-CRYST DRUG Active High Anaphylaxis 2015-04 00:00: 00 MD Demarco browne [facility] Drug Class Active Low Rash 2015-04 00:00: 00 MD Demarco browne SULFA (SULFONA MIDE ANTIBIOT ICS) Drug Class Active Low Hives 2015-04 00:00: 00 Andnicole browne NITROFUR ANTOIN MONOHYD/ M-CRYST DRUG Active High Anaphylaxis 2015-04 00:00: 00 Andnicole browne [facility] Drug Class Active Low Rash 2015-04 00:00: 00 Andnicole browne SULFA (SULFONA MIDE ANTIBIOT ICS) Drug Class Active Low Hives 2015-04 00:00: 00 Andnicole browne NITROFUR ANTOIN MONOHYD/ M-CRYST DRUG Active High Anaphylaxis 2015-04 00:00: 00 MD Demarco browne [facility] Drug Class Active Low Rash 2015-04 00:00: 00 MD Demarco browne [facility] Drug Class Active 2015-04 00:00: 00 Andnicole browne SULFA (SULFONA MIDE ANTIBIOT ICS) Drug Class Active Low Hives 2015-04 00:00: 00 Andnicole browne NITROFUR ANTOIN MONOHYD/ M-CRYST DRUG Active High Anaphylaxis 2015-04 00:00: 00 MD Demarco browne [facility] Drug Class Active Low Rash 2015-04 00:00: 00 MD Demarco browne SULFA (SULFONA MIDE ANTIBIOT ICS) Drug Class Active Low Hives 2015-04 00:00: 00 MD Demarco browne NITROFUR ANTOIN MONOHYD/ M-CRYST DRUG Active High Anaphylaxis 2015-04 00:00: 00 Andnicole browne SULFA (SULFONA MIDE ANTIBIOT ICS) Drug Class Active 2015-04 00:00: 00 MD Demarco browne [facility] Drug Class Active Low Rash 2015-04 00:00: 00 Andnicole browne SULFA (SULFONA MIDE ANTIBIOT ICS) Drug Class Active Low Hives 2015-04 00:00: 00 Andnicole browne NITROFUR ANTOIN MONOHYD/ M-CRYST DRUG Active High Anaphylaxis 2015-04 00:00: 00 MD Demarco browne [facility] Drug Class Active Low Rash 2015-04 00:00: 00 MD Demarco browne SULFA (SULFONA MIDE ANTIBIOT ICS) Drug Class Active Low Hives 2015-04 00:00: 00 MD Demarco browne NITROFUR ANTOIN MONOHYD/ M-CRYST DRUG Active High Anaphylaxis 2015-04 00:00: 00 MD Demarco browne [facility] Drug Class Active Low Rash 2015-04 00:00: 00 Andnicole browne SULFA (SULFONA MIDE ANTIBIOT ICS) Drug Class Active Low Hives 2015-04 00:00: 00 MD Demarco browne NITROFUR ANTOIN MONOHYD/ M-CRYST DRUG Active High Anaphylaxis 2015-04 00:00: 00 MD Demarco browne [facility] Drug Class Active Low Rash 2015-04 00:00: 00 Andincole browne SULFA (SULFONA MIDE ANTIBIOT ICS) Drug Class Active Low Hives 2015-04 00:00: 00 MD Demarco browne NITROFUR ANTOIN MONOHYD/ M-CRYST DRUG Active High Anaphylaxis 2015-04 00:00: 00 MD Demarco browne [facility] Drug Class Active Low Rash 2015-04 00:00: 00 MD Demarco browne SULFA (SULFONA MIDE ANTIBIOT ICS) Drug Class Active Low Hives 2015-04 00:00: 00 Andnicole browne NITROFUR ANTOIN MONOHYD/ M-CRYST DRUG Active High Anaphylaxis 2015-04 00:00: 00 MD Demarco browne [facility] Drug Class Active Low Rash 2015-04 00:00: 00 MD Demarco browne SULFA (SULFONA MIDE ANTIBIOT ICS) Drug Class Active Low Hives 2015-04 00:00: 00 MD Demarco browne NITROFUR ANTOIN MONOHYD/ M-CRYST DRUG Active High Anaphylaxis 2015-04 00:00: 00 MD Demarco browne [facility] Drug Class Active Low Rash 2015-04 00:00: 00 MD Demarco browne SULFA (SULFONA MIDE ANTIBIOT ICS) Drug Class Active Low Hives 2015-04 00:00: 00 MD Demarco browne NITROFUR ANTOIN MONOHYD/ M-CRYST DRUG Active High Anaphylaxis 2015-04 00:00: 00 MD Demarco browne [facility] Drug Class Active Low Rash 2015-04 00:00: 00 MD Anderso n SULFA (SULFONA MIDE ANTIBIOT ICS) Drug Class Active Low Hives 2015-04 00:00: 00 MD Demarco browne NITROFUR ANTOIN MONOHYD/ M-CRYST DRUG Active 2015-04 00:00: 00 Andnicole browne NITROFUR ANTOIN MONOHYD/ M-CRYST DRUG Active High Anaphylaxis 2015-04 00:00: 00 MD Demarco browne [facility] Drug Class Active Low Rash 2015-04 00:00: 00 MD Demarco browne SULFA (SULFONA MIDE ANTIBIOT ICS) Drug Class Active Low Hives 2015-04 00:00: 00 Andnicole browne NITROFUR ANTOIN MONOHYD/ M-CRYST DRUG Active High Anaphylaxis 2015-04 00:00: 00 MD Demarco browne [facility] Drug Class Active Low Rash 2015-04 00:00: 00 MD Demarco browne SULFA (SULFONA MIDE ANTIBIOT ICS) Drug Class Active Low Hives 2015-04 00:00: 00 MD Demarco browne NITROFUR ANTOIN MONOHYD/ M-CRYST DRUG Active High Anaphylaxis 2015-04 00:00: 00 MD Demarco browne [facility] Drug Class Active 2015-04 00:00: 00 MD Demarco browne [facility] Drug Class Active Low Rash 2015-04 00:00: 00 MD Demarco browne SULFA (SULFONA MIDE ANTIBIOT ICS) Drug Class Active Low Hives 2015-04 00:00: 00 MD Demarco browne NITROFUR ANTOIN MONOHYD/ M-CRYST DRUG Active High Anaphylaxis 2015-04 00:00: 00 MD Demarco browne [facility] Drug Class Active Low Rash 2015-04 00:00: 00 MD Demarco browne SULFA (SULFONA MIDE ANTIBIOT ICS) Drug Class Active Low Hives 2015-04 00:00: 00 MD Demarco browne NITROFUR ANTOIN MONOHYD/ M-CRYST DRUG Active High Anaphylaxis 2015-04 00:00: 00 MD Demarco browne [facility] Drug Class Active Low Rash 2015-04 00:00: 00 MD Demarco browne SULFA (SULFONA MIDE ANTIBIOT ICS) Drug Class Active Low Hives 2015-04 00:00: 00 Andnicole browne NITROFUR ANTOIN MONOHYD/ M-CRYST DRUG Active 2015-04 00:00: 00 Andnicole browne SULFA (SULFONA MIDE ANTIBIOT ICS) Drug Class Active 2015-04 00:00: 00 Andnicole browne NITROFUR ANTOIN MONOHYD/ M-CRYST DRUG Active High Anaphylaxis 2015-04 00:00: 00 Andnicole browne [facility] Drug Class Active Low Rash 2015-04 00:00: 00 Andnicole browne SULFA (SULFONA MIDE ANTIBIOT ICS) Drug Class Active Low Hives 2015-04 00:00: 00 Andnicole browne NITROFUR ANTOIN MONOHYD/ M-CRYST DRUG Active High Anaphylaxis 2015-04 00:00: 00 MD Demarco browne [facility] Drug Class Active Low Rash 2015-04 00:00: 00 MD Demarco browne SULFA (SULFONA MIDE ANTIBIOT ICS) Drug Class Active Low Hives 2015-04 00:00: 00 Andnicole browne NITROFUR ANTOIN MONOHYD/ M-CRYST DRUG Active High Anaphylaxis 2015-04 00:00: 00 MD Demarco browne [facility] Drug Class Active Low Rash 2015-04 00:00: 00 MD Demarco browne SULFA (SULFONA MIDE ANTIBIOT ICS) Drug Class Active Low Hives 2015-04 00:00: 00 MD Demarco browne NITROFUR ANTOIN MONOHYD/ M-CRYST DRUG Active High Anaphylaxis 2015-04 00:00: 00 MD Demarco browne [facility] Drug Class Active Low Rash 2015-04 00:00: 00 Andnicole browne SULFA (SULFONA MIDE ANTIBIOT ICS) Drug Class Active Low Hives 2015-04 00:00: 00 MD Demarco browne NITROFUR ANTOIN MONOHYD/ M-CRYST DRUG Active High Anaphylaxis 2015-04 00:00: 00 MD Demarco browne [facility] Drug Class Active Low Rash 2015-04 00:00: 00 MD Demarco browne SULFA (SULFONA MIDE ANTIBIOT ICS) Drug Class Active Low Hives 2015-04 00:00: 00 Andnicole browne NITROFUR ANTOIN MONOHYD/ M-CRYST DRUG Active 2015-04 00:00: 00 Andnicole browne NITROFUR ANTOIN MONOHYD/ M-CRYST DRUG Active High Anaphylaxis 2015-04 00:00: 00 MD Demarco browne [facility] Drug Class Active Low Rash 2015-04 00:00: 00 Andnicole browne SULFA (SULFONA MIDE ANTIBIOT ICS) Drug Class Active Low Hives 2015-04 00:00: 00 Andnicole browne NITROFUR ANTOIN MONOHYD/ M-CRYST DRUG Active High Anaphylaxis 2015-04 00:00: 00 MD Demarco browne [facility] Drug Class Active Low Rash 2015-04 00:00: 00 MD Demarco browne SULFA (SULFONA MIDE ANTIBIOT ICS) Drug Class Active Low Hives 2015-04 00:00: 00 MD Demarco browne [facility] Drug Class Active 2015-04 00:00: 00 MD Demarco browne NITROFUR ANTOIN MONOHYD/ M-CRYST DRUG Active High Anaphylaxis 2015-04 00:00: 00 MD Demarco browne [facility] Drug Class Active Low Rash 2015-04 00:00: 00 MD Demarco browne SULFA (SULFONA MIDE ANTIBIOT ICS) Drug Class Active Low Hives 2015-04 00:00: 00 Andnicole browne NITROFUR ANTOIN MONOHYD/ M-CRYST DRUG Active High Anaphylaxis 2015-04 00:00: 00 MD Demarco browne [facility] Drug Class Active Low Rash 2015-04 00:00: 00 Andnicole browne SULFA (SULFONA MIDE ANTIBIOT ICS) Drug Class Active Low Hives 2015-04 00:00: 00 Andnicole browne NITROFUR ANTOIN MONOHYD/ M-CRYST DRUG Active High Anaphylaxis 2015-04 00:00: 00 MD Demarco browne [facility] Drug Class Active Low Rash 2015-04 00:00: 00 MD Demarco browne SULFA (SULFONA MIDE ANTIBIOT ICS) Drug Class Active 2015-04 00:00: 00 Andnicole browne SULFA (SULFONA MIDE ANTIBIOT ICS) Drug Class Active Low Hives 2015-04 00:00: 00 Andnicole browne NITROFUR ANTOIN MONOHYD/ M-CRYST DRUG Active High Anaphylaxis 2015-04 00:00: 00 Andnicole browne [facility] Drug Class Active Low Rash 2015-04 00:00: 00 Andnicole browne SULFA (SULFONA MIDE ANTIBIOT ICS) Drug Class Active Low Hives 2015-04 00:00: 00 Andnicole browne NITROFUR ANTOIN MONOHYD/ M-CRYST DRUG Active High Anaphylaxis 2015-04 00:00: 00 MD Demarco browne [facility] Drug Class Active Low Rash 2015-04 00:00: 00 Andnicole browne SULFA (SULFONA MIDE ANTIBIOT ICS) Drug Class Active Low Hives 2015-04 00:00: 00 MD Demarco browne NITROFUR ANTOIN MONOHYD/ M-CRYST DRUG Active High Anaphylaxis 2015-04 00:00: 00 MD Demarco browne [facility] Drug Class Active Low Rash 2015-04 00:00: 00 MD Demarco browne SULFA (SULFONA MIDE ANTIBIOT ICS) Drug Class Active Low Hives 2015-04 00:00: 00 MD Demarco browne NITROFUR ANTOIN MONOHYD/ M-CRYST DRUG Active High Anaphylaxis 2015-04 00:00: 00 MD Demarco browne [facility] Drug Class Active Low Rash 2015-04 00:00: 00 Andnicole browne SULFA (SULFONA MIDE ANTIBIOT ICS) Drug Class Active Low Hives 2015-04 00:00: 00 Andnicole browne NITROFUR ANTOIN MONOHYD/ M-CRYST DRUG Active High Anaphylaxis 2015-04 00:00: 00 MD Demarco browne [facility] Drug Class Active Low Rash 2015-04 00:00: 00 MD Demarco browne SULFA (SULFONA MIDE ANTIBIOT ICS) Drug Class Active Low Hives 2015-04 00:00: 00 MD Demarco browne NITROFUR ANTOIN MONOHYD/ M-CRYST DRUG Active High Anaphylaxis 2015-04 00:00: 00 MD Demarco browne [facility] Drug Class Active Low Rash 2015-04 00:00: 00 MD Demarco browne SULFA (SULFONA MIDE ANTIBIOT ICS) Drug Class Active Low Hives 2015-04 00:00: 00 Andnicole browne NITROFUR ANTOIN MONOHYD/ M-CRYST DRUG Active High Anaphylaxis 2015-04 00:00: 00 MD Demarco browne [facility] Drug Class Active Low Rash 2015-04 00:00: 00 MD Demarco browne SULFA (SULFONA MIDE ANTIBIOT ICS) Drug Class Active Low Hives 2015-04 00:00: 00 MD Demarco browne NITROFUR ANTOIN MONOHYD/ M-CRYST DRUG Active 2015-04 00:00: 00 MD Demarco browne NITROFUR ANTOIN MONOHYD/ M-CRYST DRUG Active High Anaphylaxis 2015-04 00:00: 00 MD Demarco browne [facility] Drug Class Active Low Rash 2015-04 00:00: 00 MD Demarco browne SULFA (SULFONA MIDE ANTIBIOT ICS) Drug Class Active Low Hives 2015-04 00:00: 00 MD Demarco browne NITROFUR ANTOIN MONOHYD/ M-CRYST DRUG Active High Anaphylaxis 2015-04 00:00: 00 MD Demarco browne [facility] Drug Class Active Low Rash 2015-04 00:00: 00 MD Demarco browne SULFA (SULFONA MIDE ANTIBIOT ICS) Drug Class Active Low Hives 2015-04 00:00: 00 MD Demarco browne NITROFUR ANTOIN MONOHYD/ M-CRYST DRUG Active High Anaphylaxis 2015-04 00:00: 00 MD Demarco browne [facility] Drug Class Active Low Rash 2015-04 00:00: 00 MD Demarco browne [facility] Drug Class Active 2015-04 00:00: 00 MD Demarco browne SULFA (SULFONA MIDE ANTIBIOT ICS) Drug Class Active Low Hives 2015-04 00:00: 00 MD Demarco browne NITROFUR ANTOIN MONOHYD/ M-CRYST DRUG Active High Anaphylaxis 2015-04 00:00: 00 MD Demarco browne [facility] Drug Class Active Low Rash 2015-04 00:00: 00 MD Demarco browne SULFA (SULFONA MIDE ANTIBIOT ICS) Drug Class Active Low Hives 2015-04 00:00: 00 MD Demarco browne NITROFUR ANTOIN MONOHYD/ M-CRYST DRUG Active High Anaphylaxis 2015-04 00:00: 00 MD Demarco browne [facility] Drug Class Active Low Rash 2015-04 00:00: 00 MD Demarco browne SULFA (SULFONA MIDE ANTIBIOT ICS) Drug Class Active Low Hives 2015-04 00:00: 00 Andnicole browne SULFA (SULFONA MIDE ANTIBIOT ICS) Drug Class Active 2015-04 00:00: 00 MD Demarco browne NITROFUR ANTOIN MONOHYD/ M-CRYST DRUG Active High Anaphylaxis 2015-04 00:00: 00 MD Demarco browne [facility] Drug Class Active Low Rash 2015-04 00:00: 00 MD Demarco browne SULFA (SULFONA MIDE ANTIBIOT ICS) Drug Class Active Low Hives 2015-04 00:00: 00 Andnicole browne NITROFUR ANTOIN MONOHYD/ M-CRYST DRUG Active High Anaphylaxis 2015-04 00:00: 00 MD Demarco browne [facility] Drug Class Active Low Rash 2015-04 00:00: 00 MD Demarco browne SULFA (SULFONA MIDE ANTIBIOT ICS) Drug Class Active Low Hives 2015-04 00:00: 00 MD eDmarco browne NITROFUR ANTOIN MONOHYD/ M-CRYST DRUG Active High Anaphylaxis 2015-04 00:00: 00 MD Demarco browne [facility] Drug Class Active Low Rash 2015-04 00:00: 00 MD Demarco browne [facility] Drug Class Active 2015-04 00:00: 00 MD Demarco browne SULFA (SULFONA MIDE ANTIBIOT ICS) Drug Class Active Low Hives 2015-04 00:00: 00 Andnicole browne NITROFUR ANTOIN MONOHYD/ M-CRYST DRUG Active High Anaphylaxis 2015-04 00:00: 00 MD Demarco browne [facility] Drug Class Active Low Rash 2015-04 00:00: 00 MD Demarco browne SULFA (SULFONA MIDE ANTIBIOT ICS) Drug Class Active Low Hives 2015-04 00:00: 00 MD Demarco browne NITROFUR ANTOIN MONOHYD/ M-CRYST DRUG Active High Anaphylaxis 2015-04 00:00: 00 MD Demarco browne [facility] Drug Class Active Low Rash 2015-04 00:00: 00 Andnicole browne SULFA (SULFONA MIDE ANTIBIOT ICS) Drug Class Active Low Hives 2015-04 00:00: 00 Andnicole browne NITROFUR ANTOIN MONOHYD/ M-CRYST DRUG Active High Anaphylaxis 2015-04 00:00: 00 MD Demarco browne [facility] Drug Class Active Low Rash 2015-04 00:00: 00 MD Demarco browne SULFA (SULFONA MIDE ANTIBIOT ICS) Drug Class Active Low Hives 2015-04 00:00: 00 MD Demarco browne NITROFUR ANTOIN MONOHYD/ M-CRYST DRUG Active High Anaphylaxis 2015-04 00:00: 00 MD Demarco [facility]ne [facility] Drug Class Active Low Rash 2015-04 00:00: 00 MD Demarco browne SULFA (SULFONA MIDE ANTIBIOT ICS) Drug Class Active Low Hives 2015-04 00:00: 00 MD Demarco browne NITROFUR ANTOIN MONOHYD/ M-CRYST DRUG Active High Anaphylaxis 2015-04 00:00: 00 MD Demarco browne [facility] Drug Class Active Low Rash 2015-04 00:00: 00 MD Demarco browne SULFA (SULFONA MIDE ANTIBIOT ICS) Drug Class Active Low Hives 2015-04 00:00: 00 MD Demarco browne NITROFUR ANTOIN MONOHYD/ M-CRYST DRUG Active High Anaphylaxis 2015-04 00:00: 00 MD Demarco browne [facility] Drug Class Active Low Rash 2015-04 00:00: 00 MD Demarco browne SULFA (SULFONA MIDE ANTIBIOT ICS) Drug Class Active Low Hives 2015-04 00:00: 00 MD Anderso n NITROFUR ANTOIN MONOHYD/ M-CRYST DRUG Active High Anaphylaxis 2015-04 00:00: 00 MD Demarco browne [facility] Drug Class Active Low Rash 2015-04 00:00: 00 MD Demarco browne SULFA (SULFONA MIDE ANTIBIOT ICS) Drug Class Active Low Hives 2015-04 00:00: 00 Andnicole browne NITROFUR ANTOIN MONOHYD/ M-CRYST DRUG Active 2015-04 00:00: 00 Andnicole browne NITROFUR ANTOIN MONOHYD/ M-CRYST DRUG Active High Anaphylaxis 2015-04 00:00: 00 MD Demarco browne [facility] Drug Class Active Low Rash 2015-04 00:00: 00 Andnicole browne SULFA (SULFONA MIDE ANTIBIOT ICS) Drug Class Active Low Hives 2015-04 00:00: 00 Andnicole browne NITROFUR ANTOIN MONOHYD/ M-CRYST DRUG Active High Anaphylaxis 2015-04 00:00: 00 MD Demarco browne [facility] Drug Class Active Low Rash 2015-04 00:00: 00 MD Demarco browne SULFA (SULFONA MIDE ANTIBIOT ICS) Drug Class Active Low Hives 2015-04 00:00: 00 MD Demarco browne NITROFUR ANTOIN MONOHYD/ M-CRYST DRUG Active High Anaphylaxis 2015-04 00:00: 00 MD Demarco browne [facility] Drug Class Active 2015-04 00:00: 00 MD Demarco browne [facility] Drug Class Active Low Rash 2015-04 00:00: 00 MD Demarco browne SULFA (SULFONA MIDE ANTIBIOT ICS) Drug Class Active Low Hives 2015-04 00:00: 00 Andnicole browne NITROFUR ANTOIN MONOHYD/ M-CRYST DRUG Active High Anaphylaxis 2015-04 00:00: 00 MD Demarco browne [facility] Drug Class Active Low Rash 2015-04 00:00: 00 MD Demarco browne SULFA (SULFONA MIDE ANTIBIOT ICS) Drug Class Active Low Hives 2015-04 00:00: 00 MD Demarco browne NITROFUR ANTOIN MONOHYD/ M-CRYST DRUG Active High Anaphylaxis 2015-04 00:00: 00 MD Demarco browne [facility] Drug Class Active Low Rash 2015-04 00:00: 00 MD Demarco browne SULFA (SULFONA MIDE ANTIBIOT ICS) Drug Class Active Low Hives 2015-04 00:00: 00 Andnicole browne SULFA (SULFONA MIDE ANTIBIOT ICS) Drug Class Active 2015-04 00:00: 00 MD Demarco browne NITROFUR ANTOIN MONOHYD/ M-CRYST DRUG Active High Anaphylaxis 2015-04 00:00: 00 MD Demarco browne [facility] Drug Class Active Low Rash 2015-04 00:00: 00 MD Demarco browne SULFA (SULFONA MIDE ANTIBIOT ICS) Drug Class Active Low Hives 2015-04 00:00: 00 MD Demarco browne NITROFUR ANTOIN MONOHYD/ M-CRYST DRUG Active High Anaphylaxis 2015-04 00:00: 00 MD Demarco browne [facility] Drug Class Active Low Rash 2015-04 00:00: 00 MD Demarco browne SULFA (SULFONA MIDE ANTIBIOT ICS) Drug Class Active Low Hives 2015-04 00:00: 00 MD Demarco browne NITROFUR ANTOIN MONOHYD/ M-CRYST DRUG Active High Anaphylaxis 2015-04 00:00: 00 MD Demarco browne [facility] Drug Class Active Low Rash 2015-04 00:00: 00 MD Demarco browne SULFA (SULFONA MIDE ANTIBIOT ICS) Drug Class Active Low Hives 2015-04 00:00: 00 MD Demarco browne NITROFUR ANTOIN MONOHYD/ M-CRYST DRUG Active High Anaphylaxis 2015-04 00:00: 00 Andnicole browne [facility] Drug Class Active Low Rash 2015-04 00:00: 00 Andnicole browne SULFA (SULFONA MIDE ANTIBIOT ICS) Drug Class Active Low Hives 2015-04 00:00: 00 MD Demarco browne NITROFUR ANTOIN MONOHYD/ M-CRYST DRUG Active High Anaphylaxis 2015-04 00:00: 00 MD Demarco browne [facility] Drug Class Active Low Rash 2015-04 00:00: 00 Andnicole browne SULFA (SULFONA MIDE ANTIBIOT ICS) Drug Class Active Low Hives 2015-04 00:00: 00 Andnicole browne NITROFUR ANTOIN MONOHYD/ M-CRYST DRUG Active 2015-04 00:00: 00 Andnicole browne NITROFUR ANTOIN MONOHYD/ M-CRYST DRUG Active High Anaphylaxis 2015-04 00:00: 00 MD Demarco browne [facility] Drug Class Active Low Rash 2015-04 00:00: 00 Andnicole browne SULFA (SULFONA MIDE ANTIBIOT ICS) Drug Class Active Low Hives 2015-04 00:00: 00 Andnicole browne NITROFUR ANTOIN MONOHYD/ M-CRYST DRUG Active High Anaphylaxis 2015-04 00:00: 00 MD Demarco browne [facility] Drug Class Active Low Rash 2015-04 00:00: 00 MD Demarco browne SULFA (SULFONA MIDE ANTIBIOT ICS) Drug Class Active Low Hives 2015-04 00:00: 00 Andnicole browne NITROFUR ANTOIN MONOHYD/ M-CRYST DRUG Active High Anaphylaxis 2015-04 00:00: 00 MD Demarco browne [facility] Drug Class Active 2015-04 00:00: 00 MD Demarco browne [facility] Drug Class Active Low Rash 2015-04 00:00: 00 MD Demarco browne SULFA (SULFONA MIDE ANTIBIOT ICS) Drug Class Active Low Hives 2015-04 00:00: 00 MD Demarco browne NITROFUR ANTOIN MONOHYD/ M-CRYST DRUG Active High Anaphylaxis 2015-04 00:00: 00 MD Demarco browne [facility] Drug Class Active Low Rash 2015-04 00:00: 00 MD Demarco browne SULFA (SULFONA MIDE ANTIBIOT ICS) Drug Class Active Low Hives 2015-04 00:00: 00 MD Demarco browne NITROFUR ANTOIN MONOHYD/ M-CRYST DRUG Active High Anaphylaxis 2015-04 00:00: 00 MD Demarco browne SULFA (SULFONA MIDE ANTIBIOT ICS) Drug Class Active 2015-04 00:00: 00 MD Demarco browne [facility] Drug Class Active Low Rash 2015-04 00:00: 00 MD Demarco browne SULFA (SULFONA MIDE ANTIBIOT ICS) Drug Class Active Low Hives 2015-04 00:00: 00 Andnicole browne NITROFUR ANTOIN MONOHYD/ M-CRYST DRUG Active High Anaphylaxis 2015-04 00:00: 00 MD Demarco browne [facility] Drug Class Active Low Rash 2015-04 00:00: 00 Andnicole browne SULFA (SULFONA MIDE ANTIBIOT ICS) Drug Class Active Low Hives 2015-04 00:00: 00 Andnicole browne NITROFUR ANTOIN MONOHYD/ M-CRYST DRUG Active High Anaphylaxis 2015-04 00:00: 00 MD Demarco browne SULFA (SULFONA MIDE ANTIBIOT ICS) Drug Class Active 2015-04 00:00: 00 MD Demarco browne [facility] Drug Class Active Low Rash 2015-04 00:00: 00 MD Demarco browne SULFA (SULFONA MIDE ANTIBIOT ICS) Drug Class Active Low Hives 2015-04 00:00: 00 MD Demarco browne NITROFUR ANTOIN MONOHYD/ M-CRYST DRUG Active High Anaphylaxis 2015-04 00:00: 00 MD Demarco browne [facility] Drug Class Active Low Rash 2015-04 00:00: 00 MD Demarco browne SULFA (SULFONA MIDE ANTIBIOT ICS) Drug Class Active Low Hives 2015-04 00:00: 00 MD Demarco browne NITROFUR ANTOIN MONOHYD/ M-CRYST DRUG Active High Anaphylaxis 2015-04 00:00: 00 MD Demarco browne [facility] Drug Class Active Low Rash 2015-04 00:00: 00 MD Demarco browne SULFA (SULFONA MIDE ANTIBIOT ICS) Drug Class Active Low Hives 2015-04 00:00: 00 MD Demarco browne NITROFUR ANTOIN MONOHYD/ M-CRYST DRUG Active High Anaphylaxis 2015-04 00:00: 00 MD Demarco browne [facility] Drug Class Active Low Rash 2015-04 00:00: 00 MD Demarco browne SULFA (SULFONA MIDE ANTIBIOT ICS) Drug Class Active Low Hives 2015-04 00:00: 00 MD Demarco browne NITROFUR ANTOIN MONOHYD/ M-CRYST DRUG Active High Anaphylaxis 2015-04 00:00: 00 Andnicole browne NITROFUR ANTOIN MONOHYD/ M-CRYST DRUG Active 2015-04 00:00: 00 MD Demarco browne [facility] Drug Class Active Low Rash 2015-04 00:00: 00 MD Demarco browne SULFA (SULFONA MIDE ANTIBIOT ICS) Drug Class Active Low Hives 2015-04 00:00: 00 Andnicole browne NITROFUR ANTOIN MONOHYD/ M-CRYST DRUG Active High Anaphylaxis 2015-04 00:00: 00 MD Demarco browne [facility] Drug Class Active Low Rash 2015-04 00:00: 00 MD Demarco browne SULFA (SULFONA MIDE ANTIBIOT ICS) Drug Class Active Low Hives 2015-04 00:00: 00 MD Demarco browne NITROFUR ANTOIN MONOHYD/ M-CRYST DRUG Active High Anaphylaxis 2015-04 00:00: 00 MD Demarco browne [facility] Drug Class Active 2015-04 00:00: 00 MD Demarco browne [facility] Drug Class Active Low Rash 2015-04 00:00: 00 MD Demarco browne SULFA (SULFONA MIDE ANTIBIOT ICS) Drug Class Active Low Hives 2015-04 00:00: 00 MD Demarco browne NITROFUR ANTOIN MONOHYD/ M-CRYST DRUG Active High Anaphylaxis 2015-04 00:00: 00 MD Demarco browne [facility] Drug Class Active Low Rash 2015-04 00:00: 00 MD Demarco browne SULFA (SULFONA MIDE ANTIBIOT ICS) Drug Class Active Low Hives 2015-04 00:00: 00 MD Demarco browne NITROFUR ANTOIN MONOHYD/ M-CRYST DRUG Active High Anaphylaxis 2015-04 00:00: 00 MD Demarco browne SULFA (SULFONA MIDE ANTIBIOT ICS) Drug Class Active 2015-04 00:00: 00 MD Demarco browne [facility] Drug Class Active Low Rash 2015-04 00:00: 00 MD Demarco browne SULFA (SULFONA MIDE ANTIBIOT ICS) Drug Class Active Low Hives 2015-04 00:00: 00 Andnicole browne NITROFUR ANTOIN MONOHYD/ M-CRYST DRUG Active High Anaphylaxis 2015-04 00:00: 00 MD Demarco browne [facility] Drug Class Active Low Rash 2015-04 00:00: 00 Andnicole browne SULFA (SULFONA MIDE ANTIBIOT ICS) Drug Class Active Low Hives 2015-04 00:00: 00 Andnicole browne NITROFUR ANTOIN MONOHYD/ M-CRYST DRUG Active High Anaphylaxis 2015-04 00:00: 00 MD Demarco browne [facility] Drug Class Active Low Rash 2015-04 00:00: 00 MD Demarco browne SULFA (SULFONA MIDE ANTIBIOT ICS) Drug Class Active Low Hives 2015-04 00:00: 00 MD Demarco browne NITROFUR ANTOIN MONOHYD/ M-CRYST DRUG Active High Anaphylaxis 2015-04 00:00: 00 MD Demarco browne [facility] Drug Class Active Low Rash 2015-04 00:00: 00 MD Demarco browne SULFA (SULFONA MIDE ANTIBIOT ICS) Drug Class Active Low Hives 2015-04 00:00: 00 MD Demarco browne NITROFUR ANTOIN MONOHYD/ M-CRYST DRUG Active High Anaphylaxis 2015-04 00:00: 00 MD Demarco browne [facility] Drug Class Active Low Rash 2015-04 00:00: 00 MD Demarco browne SULFA (SULFONA MIDE ANTIBIOT ICS) Drug Class Active Low Hives 2015-04 00:00: 00 MD Demarco browne NITROFUR ANTOIN MONOHYD/ M-CRYST DRUG Active High Anaphylaxis 2015-04 00:00: 00 MD Demarco browne [facility] Drug Class Active Low Rash 2015-04 00:00: 00 MD Demarco browne SULFA (SULFONA MIDE ANTIBIOT ICS) Drug Class Active Low Hives 2015-04 00:00: 00 MD Demarco browne NITROFUR ANTOIN MONOHYD/ M-CRYST DRUG Active High Anaphylaxis 2015-04 00:00: 00 Andnicole browne NITROFUR ANTOIN MONOHYD/ M-CRYST DRUG Active 2015-04 00:00: 00 Andnicole browne [facility] Drug Class Active Low Rash 2015-04 00:00: 00 Andnicole browne SULFA (SULFONA MIDE ANTIBIOT ICS) Drug Class Active Low Hives 2015-04 00:00: 00 Andnicole browne NITROFUR ANTOIN MONOHYD/ M-CRYST DRUG Active High Anaphylaxis 2015-04 00:00: 00 Andnicole browne [facility] Drug Class Active Low Rash 2015-04 00:00: 00 Andnicole browne SULFA (SULFONA MIDE ANTIBIOT ICS) Drug Class Active Low Hives 2015-04 00:00: 00 Andnicole browne NITROFUR ANTOIN MONOHYD/ M-CRYST DRUG Active High Anaphylaxis 2015-04 00:00: 00 MD Demarco browne [facility] Drug Class Active 2015-04 00:00: 00 MD Demarco browne [facility] Drug Class Active Low Rash 2015-04 00:00: 00 MD Demarco browne SULFA (SULFONA MIDE ANTIBIOT ICS) Drug Class Active Low Hives 2015-04 00:00: 00 Andnicole browne NITROFUR ANTOIN MONOHYD/ M-CRYST DRUG Active High Anaphylaxis 2015-04 00:00: 00 MD Demarco browne [facility] Drug Class Active Low Rash 2015-04 00:00: 00 MD Demarco browne SULFA (SULFONA MIDE ANTIBIOT ICS) Drug Class Active Low Hives 2015-04 00:00: 00 Andnicole browne NITROFUR ANTOIN MONOHYD/ M-CRYST DRUG Active High Anaphylaxis 2015-04 00:00: 00 Andnicole browne SULFA (SULFONA MIDE ANTIBIOT ICS) Drug Class Active 2015-04 00:00: 00 MD Demarco browne [facility] Drug Class Active Low Rash 2015-04 00:00: 00 MD Demarco browne SULFA (SULFONA MIDE ANTIBIOT ICS) Drug Class Active Low Hives 2015-04 00:00: 00 Andnicole browne NITROFUR ANTOIN MONOHYD/ M-CRYST DRUG Active High Anaphylaxis 2015-04 00:00: 00 MD Demarco browne [facility] Drug Class Active Low Rash 2015-04 00:00: 00 Andnicole browne SULFA (SULFONA MIDE ANTIBIOT ICS) Drug Class Active Low Hives 2015-04 00:00: 00 Andnicole browne NITROFUR ANTOIN MONOHYD/ M-CRYST DRUG Active High Anaphylaxis 2015-04 00:00: 00 Andnicole browne [facility] Drug Class Active Low Rash 2015-04 00:00: 00 Andnicole browne SULFA (SULFONA MIDE ANTIBIOT ICS) Drug Class Active Low Hives 2015-04 00:00: 00 Andnicole browne NITROFUR ANTOIN MONOHYD/ M-CRYST DRUG Active High Anaphylaxis 2015-04 00:00: 00 MD Demarco browne [facility] Drug Class Active Low Rash 2015-04 00:00: 00 MD Demarco browne SULFA (SULFONA MIDE ANTIBIOT ICS) Drug Class Active Low Hives 2015-04 00:00: 00 MD Demarco browne NITROFUR ANTOIN MONOHYD/ M-CRYST DRUG Active High Anaphylaxis 2015-04 00:00: 00 Andnicole browne NITROFUR ANTOIN MONOHYD/ M-CRYST DRUG Active 2015-04 00:00: 00 MD Demarco browne [facility] Drug Class Active Low Rash 2015-04 00:00: 00 MD Demarco browne SULFA (SULFONA MIDE ANTIBIOT ICS) Drug Class Active Low Hives 2015-04 00:00: 00 Andnicole browne NITROFUR ANTOIN MONOHYD/ M-CRYST DRUG Active High Anaphylaxis 2015-04 00:00: 00 MD Demarco browne [facility] Drug Class Active Low Rash 2015-04 00:00: 00 Andnicole browne SULFA (SULFONA MIDE ANTIBIOT ICS) Drug Class Active Low Hives 2015-04 00:00: 00 Andnicole browne NITROFUR ANTOIN MONOHYD/ M-CRYST DRUG Active High Anaphylaxis 2015-04 00:00: 00 Andnicole browne [facility] Drug Class Active 2015-04 00:00: 00 MD Demarco browne [facility] Drug Class Active Low Rash 2015-04 00:00: 00 MD Demarco browne SULFA (SULFONA MIDE ANTIBIOT ICS) Drug Class Active Low Hives 2015-04 00:00: 00 Andnicole browne NITROFUR ANTOIN MONOHYD/ M-CRYST DRUG Active High Anaphylaxis 2015-04 00:00: 00 Andnicole browne [facility] Drug Class Active Low Rash 2015-04 00:00: 00 Andnicole browne SULFA (SULFONA MIDE ANTIBIOT ICS) Drug Class Active Low Hives 2015-04 00:00: 00 MD Demarco browne NITROFUR ANTOIN MONOHYD/ M-CRYST DRUG Active High Anaphylaxis 2015-04 00:00: 00 MD Demarco browne SULFA (SULFONA MIDE ANTIBIOT ICS) Drug Class Active 2015-04 00:00: 00 MD Demarco browne [facility] Drug Class Active Low Rash 2015-04 00:00: 00 Andnicole browne SULFA (SULFONA MIDE ANTIBIOT ICS) Drug Class Active Low Hives 2015-04 00:00: 00 MD Demarco browne NITROFUR ANTOIN MONOHYD/ M-CRYST DRUG Active High Anaphylaxis 2015-04 00:00: 00 MD Demarco browne [facility] Drug Class Active Low Rash 2015-04 00:00: 00 MD Demarco browne SULFA (SULFONA MIDE ANTIBIOT ICS) Drug Class Active Low Hives 2015-04 00:00: 00 Andnicole browne NITROFUR ANTOIN MONOHYD/ M-CRYST DRUG Active High Anaphylaxis 2015-04 00:00: 00 MD Demarco browne [facility] Drug Class Active Low Rash 2015-04 00:00: 00 MD Demarco browne SULFA (SULFONA MIDE ANTIBIOT ICS) Drug Class Active Low Hives 2015-04 00:00: 00 MD Demarco browne NITROFUR ANTOIN MONOHYD/ M-CRYST DRUG Active High Anaphylaxis 2015-04 00:00: 00 MD Demarco browne [facility] Drug Class Active Low Rash 2015-04 00:00: 00 MD Demarco browne SULFA (SULFONA MIDE ANTIBIOT ICS) Drug Class Active Low Hives 2015-04 00:00: 00 Andnicole browne NITROFUR ANTOIN MONOHYD/ M-CRYST DRUG Active High Anaphylaxis 2015-04 00:00: 00 Andnicole browne NITROFUR ANTOIN MONOHYD/ M-CRYST DRUG Active 2015-04 00:00: 00 MD Demarco browne [facility] Drug Class Active Low Rash 2015-04 00:00: 00 Andnicole browne SULFA (SULFONA MIDE ANTIBIOT ICS) Drug Class Active Low Hives 2015-04 00:00: 00 Andnicole browne NITROFUR ANTOIN MONOHYD/ M-CRYST DRUG Active High Anaphylaxis 2015-04 00:00: 00 MD Demarco browne [facility] Drug Class Active Low Rash 2015-04 00:00: 00 MD Demarco browne SULFA (SULFONA MIDE ANTIBIOT ICS) Drug Class Active Low Hives 2015-04 00:00: 00 Andnicole browne NITROFUR ANTOIN MONOHYD/ M-CRYST DRUG Active High Anaphylaxis 2015-04 00:00: 00 MD Demarco browne [facility] Drug Class Active 2015-04 00:00: 00 MD Demarco browne [facility] Drug Class Active Low Rash 2015-04 00:00: 00 MD Demarco browne SULFA (SULFONA MIDE ANTIBIOT ICS) Drug Class Active Low Hives 2015-04 00:00: 00 MD Demarco browne NITROFUR ANTOIN MONOHYD/ M-CRYST DRUG Active High Anaphylaxis 2015-04 00:00: 00 MD Demarco browne [facility] Drug Class Active Low Rash 2015-04 00:00: 00 MD Demarco browne SULFA (SULFONA MIDE ANTIBIOT ICS) Drug Class Active Low Hives 2015-04 00:00: 00 Andnicole browne NITROFUR ANTOIN MONOHYD/ M-CRYST DRUG Active High Anaphylaxis 2015-04 00:00: 00 MD Anderso n SULFA (SULFONA MIDE ANTIBIOT ICS) Drug Class Active 2015-04 00:00: 00 MD Demarco browne [facility] Drug Class Active Low Rash 2015-04 00:00: 00 Andnicole browne SULFA (SULFONA MIDE ANTIBIOT ICS) Drug Class Active Low Hives 2015-04 00:00: 00 Andnicole browne NITROFUR ANTOIN MONOHYD/ M-CRYST DRUG Active High Anaphylaxis 2015-04 00:00: 00 MD Demarco browne [facility] Drug Class Active Low Rash 2015-04 00:00: 00 Andnicole browne SULFA (SULFONA MIDE ANTIBIOT ICS) Drug Class Active Low Hives 2015-04 00:00: 00 MD Demarco browne NITROFUR ANTOIN MONOHYD/ M-CRYST DRUG Active High Anaphylaxis 2015-04 00:00: 00 MD Demarco browne [facility] Drug Class Active Low Rash 2015-04 00:00: 00 MD Demarco browne SULFA (SULFONA MIDE ANTIBIOT ICS) Drug Class Active Low Hives 2015-04 00:00: 00 Andnicole browne NITROFUR ANTOIN MONOHYD/ M-CRYST DRUG Active High Anaphylaxis 2015-04 00:00: 00 MD Demarco browne [facility] Drug Class Active Low Rash 2015-04 00:00: 00 MD Demarco browne SULFA (SULFONA MIDE ANTIBIOT ICS) Drug Class Active Low Hives 2015-04 00:00: 00 MD Demarco browne NITROFUR ANTOIN MONOHYD/ M-CRYST DRUG Active High Anaphylaxis 2015-04 00:00: 00 MD Demarco browne [facility] Drug Class Active Low Rash 2015-04 00:00: 00 Andnicloe browne SULFA (SULFONA MIDE ANTIBIOT ICS) Drug Class Active Low Hives 2015-04 00:00: 00 MD Demarco browne NITROFUR ANTOIN MONOHYD/ M-CRYST DRUG Active High Anaphylaxis 2015-04 00:00: 00 Andnicole browne NITROFUR ANTOIN MONOHYD/ M-CRYST DRUG Active 2015-04 00:00: 00 MD Anderso n NITROFUR ANTOIN MONOHYD/ M-CRYST DRUG Active 2015-04 00:00: 00 MD Demarco browne [facility] Drug Class Active Low Rash 2015-04 00:00: 00 MD Demarco browne SULFA (SULFONA MIDE ANTIBIOT ICS) Drug Class Active Low Hives 2015-04 00:00: 00 Andnicole browne NITROFUR ANTOIN MONOHYD/ M-CRYST DRUG Active High Anaphylaxis 2015-04 00:00: 00 MD Demarco browne [facility] Drug Class Active Low Rash 2015-04 00:00: 00 Andnicole browne SULFA (SULFONA MIDE ANTIBIOT ICS) Drug Class Active Low Hives 2015-04 00:00: 00 MD Demarco browne [facility] Drug Class Active 2015-04 00:00: 00 MD Demarco browne NITROFUR ANTOIN MONOHYD/ M-CRYST DRUG Active High Anaphylaxis 2015-04 00:00: 00 MD Demarco browne [facility] Drug Class Active Low Rash 2015-04 00:00: 00 MD Demarco browne SULFA (SULFONA MIDE ANTIBIOT ICS) Drug Class Active Low Hives 2015-04 00:00: 00 MD Demarco browne NITROFUR ANTOIN MONOHYD/ M-CRYST DRUG Active High Anaphylaxis 2015-04 00:00: 00 MD Demarco browen [facility] Drug Class Active Low Rash 2015-04 00:00: 00 MD Demarco browne SULFA (SULFONA MIDE ANTIBIOT ICS) Drug Class Active Low Hives 2015-04 00:00: 00 MD Demarco browne SULFA (SULFONA MIDE ANTIBIOT ICS) Drug Class Active 2015-04 00:00: 00 MD Demarco browen NITROFUR ANTOIN MONOHYD/ M-CRYST DRUG Active High Anaphylaxis 2015-04 00:00: 00 MD Demarco browne [facility] Drug Class Active Low Rash 2015-04 00:00: 00 MD Demarco browne SULFA (SULFONA MIDE ANTIBIOT ICS) Drug Class Active Low Hives 2015-04 00:00: 00 MD Demarco browne NITROFUR ANTOIN MONOHYD/ M-CRYST DRUG Active High Anaphylaxis 2015-04 00:00: 00 MD Demarco browne [facility] Drug Class Active Low Rash 2015-04 00:00: 00 MD Demarco browne SULFA (SULFONA MIDE ANTIBIOT ICS) Drug Class Active Low Hives 2015-04 00:00: 00 Andnicole browne NITROFUR ANTOIN MONOHYD/ M-CRYST DRUG Active High Anaphylaxis 2015-04 00:00: 00 MD Demarco browne [facility] Drug Class Active Low Rash 2015-04 00:00: 00 Andnicole browne SULFA (SULFONA MIDE ANTIBIOT ICS) Drug Class Active Low Hives 2015-04 00:00: 00 MD Demarco browne NITROFUR ANTOIN MONOHYD/ M-CRYST DRUG Active High Anaphylaxis 2015-04 00:00: 00 MD Demarco browne [facility] Drug Class Active Low Rash 2015-04 00:00: 00 MD Demarco browne SULFA (SULFONA MIDE ANTIBIOT ICS) Drug Class Active Low Hives 2015-04 00:00: 00 Andnicole browne NITROFUR ANTOIN MONOHYD/ M-CRYST DRUG Active High Anaphylaxis 2015-04 00:00: 00 MD Demarco browne [facility] Drug Class Active Low Rash 2015-04 00:00: 00 MD Demarco browne SULFA (SULFONA MIDE ANTIBIOT ICS) Drug Class Active Low Hives 2015-04 00:00: 00 MD Demarco browne NITROFUR ANTOIN MONOHYD/ M-CRYST DRUG Active 2015-04 00:00: 00 MD Demarco browne NITROFUR ANTOIN MONOHYD/ M-CRYST DRUG Active High Anaphylaxis 2015-04 00:00: 00 MD Demarco browne [facility] Drug Class Active Low Rash 2015-04 00:00: 00 MD Demarco browne SULFA (SULFONA MIDE ANTIBIOT ICS) Drug Class Active Low Hives 2015-04 00:00: 00 MD Demarco browne NITROFUR ANTOIN MONOHYD/ M-CRYST DRUG Active High Anaphylaxis 2015-04 00:00: 00 MD Demarco browne [facility] Drug Class Active Low Rash 2015-04 00:00: 00 Andnicole browne SULFA (SULFONA MIDE ANTIBIOT ICS) Drug Class Active Low Hives 2015-04 00:00: 00 MD Demarco browne [facility] Drug Class Active 2015-04 00:00: 00 MD Demarco browne NITROFUR ANTOIN MONOHYD/ M-CRYST DRUG Active High Anaphylaxis 2015-04 00:00: 00 MD Demarco browne [facility] Drug Class Active Low Rash 2015-04 00:00: 00 MD Demarco browne SULFA (SULFONA MIDE ANTIBIOT ICS) Drug Class Active Low Hives 2015-04 00:00: 00 MD Demarco browne NITROFUR ANTOIN MONOHYD/ M-CRYST DRUG Active High Anaphylaxis 2015-04 00:00: 00 MD Demarco [facility] Drug Class Active Low Rash 2015-04 00:00: 00 MD Demarco browne SULFA (SULFONA MIDE ANTIBIOT ICS) Drug Class Active Low Hives 2015-04 00:00: 00 MD Demarco browne SULFA (SULFONA MIDE ANTIBIOT ICS) Drug Class Active 2015-04 00:00: 00 MD Demarco browne NITROFUR ANTOIN MONOHYD/ [facility] DRUG Active High Anaphylaxis 2015-04 00:00: 00 MD Demarco [facility] Drug Class Active Low Rash 2015-04 00:00: 00 MD Demarco browne SULFA (SULFONA MIDE ANTIBIOT ICS) Drug Class Active Low Hives 2015-04 00:00: 00 MD Demarco browne NITROFUR ANTOIN MONOHYD/ [facility] DRUG Active High Anaphylaxis 2015-04 00:00: 00 MD Demarco browne [facility] Drug Class Active Low Rash 2015-04 00:00: 00 MD Demarco browne SULFA (SULFONA MIDE ANTIBIOT ICS) Drug Class Active Low Hives 2015-04 00:00: 00 MD Demarco browne NITROFUR ANTOIN MONOHYD/ [facility] DRUG Active High Anaphylaxis 2015-04 00:00: 00 MD Demarco browne [facility] Drug Class Active Low Rash 2015-04 00:00: 00 MD Demarco browne SULFA (SULFONA MIDE ANTIBIOT ICS) Drug Class Active Low Hives 2015-04 00:00: 00 MD Demarco browne NITROFUR ANTOIN MONOHYD/ [facility] DRUG Active High Anaphylaxis 2015-04 00:00: 00 Andnicole browne NITROFUR ANTOIN MONOHYD/ [facility] DRUG Active 2015-04 00:00: 00 MD Demarco browne [facility] Drug Class Active Low Rash 2015-04 00:00: 00 Andnicole browne SULFA (SULFONA MIDE ANTIBIOT ICS) Drug Class Active Low Hives 2015-04 00:00: 00 MD Demarco browne NITROFUR ANTOIN MONOHYD/ [facility] DRUG Active High Anaphylaxis 2015-04 00:00: 00 MD Demarco browne [facility] Drug Class Active Low Rash 2015-04 00:00: 00 MD Demarco browne SULFA (SULFONA MIDE ANTIBIOT ICS) Drug Class Active Low Hives 2015-04 00:00: 00 MD Demarco browne [facility] Drug Class Active 2015-04 00:00: 00 MD Demarco browne [facility] Drug Class Active 2015-04 00:00: 00 MD Demarco browne NITROFUR ANTOIN MONOHYD/ [facility] DRUG Active High Anaphylaxis 2015-04 00:00: 00 MD Demarco browne [facility] Drug Class Active Low Rash 2015-04 00:00: 00 MD Demarco browne SULFA (SULFONA MIDE ANTIBIOT ICS) Drug Class Active Low Hives 2015-04 00:00: 00 MD Demarco browne NITROFUR ANTOIN MONOHYD/ [facility] DRUG Active High Anaphylaxis 2015-04 00:00: 00 Andnicole browne SULFA (SULFONA MIDE ANTIBIOT ICS) Drug Class Active 2015-04 00:00: 00 MD Demarco browne [facility] Drug Class Active Low Rash 2015-04 00:00: 00 MD Demarco browne SULFA (SULFONA MIDE ANTIBIOT ICS) Drug Class Active Low Hives 2015-04 00:00: 00 MD Anderso n NITROFUR ANTOIN MONOHYD/ [facility] DRUG Active High Anaphylaxis 2015-04 00:00: 00 Andnicole browne [facility] Drug Class Active Low Rash 2015-04 00:00: 00 Andnicole browne SULFA (SULFONA MIDE ANTIBIOT ICS) Drug Class Active Low Hives 2015-04 00:00: 00 Anderskristal browne NITROFUR ANTOIN MONOHYD/ M-CRYST DRUG Active High Anaphylaxis 2015-04 00:00: 00 Andnicole browne [facility] Drug Class Active Low Rash 2015-04 00:00: 00 Andnicole browne SULFA (SULFONA MIDE ANTIBIOT ICS) Drug Class Active Low Hives 2015-04 00:00: 00 Anderskristal browne NITROFUR ANTOIN MONOHYD/ M-CRYST DRUG Active High Anaphylaxis 2015-04 00:00: 00 MD Demarco browne [facility] Drug Class Active Low Rash 2015-04 00:00: 00 MD Demarco browne SULFA (SULFONA MIDE ANTIBIOT ICS) Drug Class Active Low Hives 2015-04 00:00: 00 Andnicole browne NITROFUR ANTOIN MONOHYD/ M-CRYST DRUG Active High Anaphylaxis 2015-04 00:00: 00 Andnicole browne NITROFUR ANTOIN MONOHYD/ M-CRYST DRUG Active 2015-04 00:00: 00 MD Demarco browne [facility] Drug Class Active Low Rash 2015-04 00:00: 00 MD Demarco browne SULFA (SULFONA MIDE ANTIBIOT ICS) Drug Class Active Low Hives 2015-04 00:00: 00 MD Demarco browne NITROFUR ANTOIN MONOHYD/ M-CRYST DRUG Active High Anaphylaxis 2015-04 00:00: 00 Andnicole browne [facility] Drug Class Active Low Rash 2015-04 00:00: 00 Andnicole browne SULFA (SULFONA MIDE ANTIBIOT ICS) Drug Class Active Low Hives 2015-04 00:00: 00 MD Demarco browne [facility] Drug Class Active 2015-04 00:00: 00 MD Demarco browne NITROFUR ANTOIN MONOHYD/ M-CRYST DRUG Active High Anaphylaxis 2015-04 00:00: 00 MD Demarco browne [facility] Drug Class Active Low Rash 2015-04 00:00: 00 MD Demarco browne SULFA (SULFONA MIDE ANTIBIOT ICS) Drug Class Active Low Hives 2015-04 00:00: 00 Andnicole browne SULFA (SULFONA MIDE ANTIBIOT ICS) Drug Class Active 2015-04 00:00: 00 MD Demarco browne NITROFUR ANTOIN MONOHYD/ M-CRYST DRUG Active High Anaphylaxis 2015-04 00:00: 00 MD Demarco browne [facility] Drug Class Active Low Rash 2015-04 00:00: 00 MD Demarco browne SULFA (SULFONA MIDE ANTIBIOT ICS) Drug Class Active Low Hives 2015-04 00:00: 00 MD Demarco browne NITROFUR ANTOIN MONOHYD/ M-CRYST DRUG Active High Anaphylaxis 2015-04 00:00: 00 MD Demarco browne [facility] Drug Class Active Low Rash 2015-04 00:00: 00 MD Demarco browne SULFA (SULFONA MIDE ANTIBIOT ICS) Drug Class Active Low Hives 2015-04 00:00: 00 Andnicole browne NITROFUR ANTOIN MONOHYD/ M-CRYST DRUG Active High Anaphylaxis 2015-04 00:00: 00 MD Demarco browne [facility] Drug Class Active Low Rash 2015-04 00:00: 00 MD Demarco browne SULFA (SULFONA MIDE ANTIBIOT ICS) Drug Class Active Low Hives 2015-04 00:00: 00 MD Demarco browne NITROFUR ANTOIN MONOHYD/ M-CRYST DRUG Active High Anaphylaxis 2015-04 00:00: 00 Andnicole browne NITROFUR ANTOIN MONOHYD/ M-CRYST DRUG Active 2015-04 00:00: 00 MD Demarco browne [facility] Drug Class Active Low Rash 2015-04 00:00: 00 MD Demarco browne SULFA (SULFONA MIDE ANTIBIOT ICS) Drug Class Active Low Hives 2015-04 00:00: 00 MD Demarco browne NITROFUR ANTOIN MONOHYD/ M-CRYST DRUG Active High Anaphylaxis 2015-04 00:00: 00 MD Demarco browne [facility] Drug Class Active Low Rash 2015-04 00:00: 00 MD Demarco browne SULFA (SULFONA MIDE ANTIBIOT ICS) Drug Class Active Low Hives 2015-04 00:00: 00 Andnicole browne [facility] Drug Class Active 2015-04 00:00: 00 MD Demarco browne NITROFUR ANTOIN MONOHYD/ M-CRYST DRUG Active High Anaphylaxis 2015-04 00:00: 00 Andnicole browne [facility] Drug Class Active Low Rash 2015-04 00:00: 00 Andnicole browne SULFA (SULFONA MIDE ANTIBIOT ICS) Drug Class Active Low Hives 2015-04 00:00: 00 Andnicole browne NITROFUR ANTOIN MONOHYD/ M-CRYST DRUG Active High Anaphylaxis 2015-04 00:00: 00 MD Demarco browne SULFA (SULFONA MIDE ANTIBIOT ICS) Drug Class Active 2015-04 00:00: 00 MD Demarco browne SULFA (SULFONA MIDE ANTIBIOT ICS) Drug Class Active 2015-04 00:00: 00 MD Demarco browne [facility] Drug Class Active Low Rash 2015-04 00:00: 00 Andnicole browne SULFA (SULFONA MIDE ANTIBIOT ICS) Drug Class Active Low Hives 2015-04 00:00: 00 Andnicole browne NITROFUR ANTOIN MONOHYD/ M-CRYST DRUG Active High Anaphylaxis 2015-04 00:00: 00 MD Demarco browne [facility] Drug Class Active Low Rash 2015-04 00:00: 00 Andnicole browne SULFA (SULFONA MIDE ANTIBIOT ICS) Drug Class Active Low Hives 2015-04 00:00: 00 Andnicole browne NITROFUR ANTOIN MONOHYD/ M-CRYST DRUG Active High Anaphylaxis 2015-04 00:00: 00 MD Demarco browne [facility] Drug Class Active Low Rash 2015-04 00:00: 00 MD Demarco browne SULFA (SULFONA MIDE ANTIBIOT ICS) Drug Class Active Low Hives 2015-04 00:00: 00 Andnicole browne NITROFUR ANTOIN MONOHYD/ M-CRYST DRUG Active 2015-04 00:00: 00 Andnicole browne [facility] Drug Class Active 2015-04 00:00: 00 Andnicole browne SULFA (SULFONA MIDE ANTIBIOT ICS) Drug Class Active 2015-04 00:00: 00 Andnicole browne NITROFUR ANTOIN MONOHYD/ M-CRYST DRUG Active 2015-04 00:00: 00 Andnicole browne [facility] Drug Class Active 2015-04 00:00: 00 Andnicole browne SULFA (SULFONA MIDE ANTIBIOT ICS) Drug Class Active 2015-04 00:00: 00 Andnicole browne NITROFUR ANTOIN MONOHYD/ M-CRYST DRUG Active 2015-04 00:00: 00 MD Demarco browne [facility] Drug Class Active 2015-04 00:00: 00 MD Demarco browne SULFA (SULFONA MIDE ANTIBIOT ICS) Drug Class Active 2015-04 00:00: 00 MD Demarco browne NITROFUR ANTOIN MONOHYD/ M-CRYST DRUG Active 2015-04 00:00: 00 MD Demarco browne [facility] Drug Class Active 2015-04 00:00: 00 MD Demarco browne SULFA (SULFONA MIDE ANTIBIOT ICS) Drug Class Active 2015-04 00:00: 00 Andnicole browne NITROFUR ANTOIN MONOHYD/ M-CRYST DRUG Active 2015-04 00:00: 00 MD Demarco browne [facility] Drug Class Active 2015-04 00:00: 00 Andnicole browne SULFA (SULFONA MIDE ANTIBIOT ICS) Drug Class Active 2015-04 00:00: 00 MD Demarco browne NITROFUR ANTOIN MONOHYD/ M-CRYST DRUG Active 2015-04 00:00: 00 MD Demarco browne [facility] Drug Class Active 2015-04 00:00: 00 MD Demarco browne SULFA (SULFONA MIDE ANTIBIOT ICS) Drug Class Active 2015-04 00:00: 00 MD Anderso n NITROFUR ANTOIN MONOHYD/ M-CRYST DRUG Active 2015-04 00:00: 00 Andnicole n NITROFUR ANTOIN MONOHYD/ M-CRYST DRUG Active 2015-04 00:00: 00 Andnicole n [facility] Drug Class Active 2015-04 00:00: 00 MD Demarco browne SULFA (SULFONA MIDE ANTIBIOT ICS) Drug Class Active 2015-04 00:00: 00 Andnicole browne NITROFUR ANTOIN MONOHYD/ M-CRYST DRUG Active 2015-04 00:00: 00 Andnicole browne [facility] Drug Class Active 2015-04 00:00: 00 MD Demarco browne SULFA (SULFONA MIDE ANTIBIOT ICS) Drug Class Active 2015-04 00:00: 00 Andnicole browne NITROFUR ANTOIN MONOHYD/ M-CRYST DRUG Active 2015-04 00:00: 00 Andnicole n [facility] Drug Class Active 2015-04 00:00: 00 Andnicole browne [facility] Drug Class Active 2015-04 00:00: 00 Andnicole browne SULFA (SULFONA MIDE ANTIBIOT ICS) Drug Class Active 2015-04 00:00: 00 MD Demarco browne NITROFUR ANTOIN MONOHYD/ M-CRYST DRUG Active 2015-04 00:00: 00 Andnicole browne [facility] Drug Class Active 2015-04 00:00: 00 MD Demarco browne SULFA (SULFONA MIDE ANTIBIOT ICS) Drug Class Active 2015-04 00:00: 00 MD Demarco browne NITROFUR ANTOIN MONOHYD/ M-CRYST DRUG Active 2015-04 00:00: 00 Andnicole browne [facility] Drug Class Active 2015-04 00:00: 00 MD Demarco browne SULFA (SULFONA MIDE ANTIBIOT ICS) Drug Class Active 2015-04 00:00: 00 MD Demarco browne SULFA (SULFONA MIDE ANTIBIOT ICS) Drug Class Active 2015-04 00:00: 00 MD Demarco browne NITROFUR ANTOIN MONOHYD/ M-CRYST DRUG Active 2015-04 00:00: 00 Andnicole browne [facility] Drug Class Active 2015-04 00:00: 00 MD Demarco browne SULFA (SULFONA MIDE ANTIBIOT ICS) Drug Class Active 2015-04 00:00: 00 MD Demarco browne NITROFUR ANTOIN MONOHYD/ M-CRYST DRUG Active 2015-04 00:00: 00 Andnicole browne [facility] Drug Class Active 2015-04 00:00: 00 Andnicole browne SULFA (SULFONA MIDE ANTIBIOT ICS) Drug Class Active 2015-04 00:00: 00 Andnicole browne NITROFUR ANTOIN MONOHYD/ M-CRYST DRUG Active 2015-04 00:00: 00 Andnicole browne [facility] Drug Class Active 2015-04 00:00: 00 Andnicole browne SULFA (SULFONA MIDE ANTIBIOT ICS) Drug Class Active 2015-04 00:00: 00 MD Demarco browne NITROFUR ANTOIN MONOHYD/ M-CRYST DRUG Active 2015-04 00:00: 00 MD Demarco browne [facility] Drug Class Active 2015-04 00:00: 00 MD Demarco browne SULFA (SULFONA MIDE ANTIBIOT ICS) Drug Class Active 2015-04 00:00: 00 MD Demarco browne NITROFUR ANTOIN MONOHYD/ M-CRYST DRUG Active 2015-04 00:00: 00 Andnicole browne [facility] Drug Class Active 2015-04 00:00: 00 MD Demarco browne NITROFUR ANTOIN MONOHYD/ M-CRYST DRUG Active 2015-04 00:00: 00 MD Demarco browne SULFA (SULFONA MIDE ANTIBIOT ICS) Drug Class Active 2015-04 00:00: 00 MD Demarco browne NITROFUR ANTOIN MONOHYD/ M-CRYST DRUG Active 2015-04 00:00: 00 MD Demarco browne [facility] Drug Class Active 2015-04 00:00: 00 MD Demarco browne SULFA (SULFONA MIDE ANTIBIOT ICS) Drug Class Active 2015-04 00:00: 00 MD Anderso n NITROFUR ANTOIN MONOHYD/ M-CRYST DRUG Active 2015-04 00:00: 00 Andnicole n [facility] Drug Class Active 2015-04 00:00: 00 Andnicole n SULFA (SULFONA MIDE ANTIBIOT ICS) Drug Class Active 2015-04 00:00: 00 Andnicole browne NITROFUR ANTOIN MONOHYD/ M-CRYST DRUG Active 2015-04 00:00: 00 Andnicole n NITROFUR ANTOIN MONOHYD/ M-CRYST DRUG Active 2015-04 00:00: 00 Andnicole browne [facility] Drug Class Active 2015-04 00:00: 00 Andnicole browne SULFA (SULFONA MIDE ANTIBIOT ICS) Drug Class Active 2015-04 00:00: 00 Andnicole browne NITROFUR ANTOIN MONOHYD/ M-CRYST DRUG Active 2015-04 00:00: 00 Andnicole n [facility] Drug Class Active 2015-04 00:00: 00 Andnicole browne [facility] Drug Class Active 2015-04 00:00: 00 Andnicole browne SULFA (SULFONA MIDE ANTIBIOT ICS) Drug Class Active 2015-04 00:00: 00 Andnicole browne NITROFUR ANTOIN MONOHYD/ M-CRYST DRUG Active 2015-04 00:00: 00 Andnicole browne [facility] Drug Class Active 2015-04 00:00: 00 Andnciole browne SULFA (SULFONA MIDE ANTIBIOT ICS) Drug Class Active 2015-04 00:00: 00 MD Demarco browne NITROFUR ANTOIN MONOHYD/ M-CRYST DRUG Active 2015-04 00:00: 00 Andnicole n SULFA (SULFONA MIDE ANTIBIOT ICS) Drug Class Active 2015-04 00:00: 00 Andnicole browne [facility] Drug Class Active 2015-04 00:00: 00 Andnicole browne SULFA (SULFONA MIDE ANTIBIOT ICS) Drug Class Active 2015-04 00:00: 00 Andnicole browne NITROFUR ANTOIN MONOHYD/ M-CRYST DRUG Active 2015-04 00:00: 00 Andnicole browne [facility] Drug Class Active 2015-04 00:00: 00 Andnicole browne SULFA (SULFONA MIDE ANTIBIOT ICS) Drug Class Active 2015-04 00:00: 00 MD Demarco browne NITROFUR ANTOIN MONOHYD/ M-CRYST DRUG Active 2015-04 00:00: 00 Andnicole browne [facility] Drug Class Active 2015-04 00:00: 00 Andnicole browne SULFA (SULFONA MIDE ANTIBIOT ICS) Drug Class Active 2015-04 00:00: 00 Andnicole browne NITROFUR ANTOIN MONOHYD/ M-CRYST DRUG Active 2015-04 00:00: 00 Andnicole browne [facility] Drug Class Active 2015-04 00:00: 00 Andnicole browne SULFA (SULFONA MIDE ANTIBIOT ICS) Drug Class Active 2015-04 00:00: 00 MD Demarco browne NITROFUR ANTOIN MONOHYD/ M-CRYST DRUG Active 2015-04 00:00: 00 Andnicole browne [facility] Drug Class Active 2015-04 00:00: 00 Andnicole browne SULFA (SULFONA MIDE ANTIBIOT ICS) Drug Class Active 2015-04 00:00: 00 MD Demarco browne NITROFUR ANTOIN MONOHYD/ M-CRYST DRUG Active 2015-04 00:00: 00 Andnicole browne [facility] Drug Class Active 2015-04 00:00: 00 Andnicole browne SULFA (SULFONA MIDE ANTIBIOT ICS) Drug Class Active 2015-04 00:00: 00 Andnicole browne NITROFUR ANTOIN MONOHYD/ M-CRYST DRUG Active 2015-04 00:00: 00 Andnicole browne [facility] Drug Class Active 2015-04 00:00: 00 Andnicole browne SULFA (SULFONA MIDE ANTIBIOT ICS) Drug Class Active 2015-04 00:00: 00 Andnicole browne NITROFUR ANTOIN MONOHYD/ M-CRYST DRUG Active 2015-04 00:00: 00 Anderso n NITROFUR ANTOIN MONOHYD/ M-CRYST DRUG Active 2015-04 00:00: 00 Andnicole browne [facility] Drug Class Active 2015-04 00:00: 00 MD Demarco browne SULFA (SULFONA MIDE ANTIBIOT ICS) Drug Class Active 2015-04 00:00: 00 Andnicole browne NITROFUR ANTOIN MONOHYD/ M-CRYST DRUG Active 2015-04 00:00: 00 Andnicole browne [facility] Drug Class Active 2015-04 00:00: 00 Andnicole browne SULFA (SULFONA MIDE ANTIBIOT ICS) Drug Class Active 2015-04 00:00: 00 Andnicole browne [facility] Drug Class Active 2015-04 00:00: 00 Andnicole browne NITROFUR ANTOIN MONOHYD/ M-CRYST DRUG Active 2015-04 00:00: 00 Andnicole browne [facility] Drug Class Active 2015-04 00:00: 00 MD Demarco browne SULFA (SULFONA MIDE ANTIBIOT ICS) Drug Class Active 2015-04 00:00: 00 Andnicole browne NITROFUR ANTOIN MONOHYD/ M-CRYST DRUG Active 2015-04 00:00: 00 MD Demarco browne [facility] Drug Class Active 2015-04 00:00: 00 MD Demarco browne SULFA (SULFONA MIDE ANTIBIOT ICS) Drug Class Active 2015-04 00:00: 00 MD Demarco browne NITROFUR ANTOIN MONOHYD/ M-CRYST DRUG Active 2015-04 00:00: 00 MD Demarco browne SULFA (SULFONA MIDE ANTIBIOT ICS) Drug Class Active 2015-04 00:00: 00 Andnicole browne [facility] Drug Class Active 2015-04 00:00: 00 MD Demarco browne SULFA (SULFONA MIDE ANTIBIOT ICS) Drug Class Active 2015-04 00:00: 00 MD Demarco browne NITROFUR ANTOIN MONOHYD/ M-CRYST DRUG Active 2015-04 00:00: 00 MD Demarco browne [facility] Drug Class Active 2015-04 00:00: 00 MD Demarco browne SULFA (SULFONA MIDE ANTIBIOT ICS) Drug Class Active 2015-04 00:00: 00 MD Demarco browne NITROFUR ANTOIN MONOHYD/ M-CRYST DRUG Active 2015-04 00:00: 00 MD Demarco browne [facility] Drug Class Active 2015-04 00:00: 00 Andnicole browne SULFA (SULFONA MIDE ANTIBIOT ICS) Drug Class Active 2015-04 00:00: 00 Andnicole browne NITROFUR ANTOIN MONOHYD/ M-CRYST DRUG Active 2015-04 00:00: 00 Andnicole browne [facility] Drug Class Active 2015-04 00:00: 00 Andnicole browne SULFA (SULFONA MIDE ANTIBIOT ICS) Drug Class Active 2015-04 00:00: 00 Andnicole browne NITROFUR ANTOIN MONOHYD/ M-CRYST DRUG Active 2015-04 00:00: 00 Andnicole browne [facility] Drug Class Active 2015-04 00:00: 00 Andnicole browne SULFA (SULFONA MIDE ANTIBIOT ICS) Drug Class Active 2015-04 00:00: 00 MD Demarco browne NITROFUR ANTOIN MONOHYD/ M-CRYST DRUG Active 2015-04 00:00: 00 MD Demarco browne [facility] Drug Class Active 2015-04 00:00: 00 Andnicole browne [facility] Drug Class Active 2015-04 00:00: 00 MD Demarco browne SULFA (SULFONA MIDE ANTIBIOT ICS) Drug Class Active 2015-04 00:00: 00 MD Demarco browne NITROFUR ANTOIN MONOHYD/ M-CRYST DRUG Active 2015-04 00:00: 00 Andnicole browne [facility] Drug Class Active 2015-04 00:00: 00 Andnicole browne SULFA (SULFONA MIDE ANTIBIOT ICS) Drug Class Active 2015-04 00:00: 00 Andnicole browne NITROFUR ANTOIN MONOHYD/ M-CRYST DRUG Active 2015-04 00:00: 00 MD Demarco browne [facility] Drug Class Active 2015-04 00:00: 00 Andnicole browne SULFA (SULFONA MIDE ANTIBIOT ICS) Drug Class Active 2015-04 00:00: 00 MD Demarco browne NITROFUR ANTOIN MONOHYD/ M-CRYST DRUG Active 2015-04 00:00: 00 Andnicole browne NITROFUR ANTOIN MONOHYD/ M-CRYST DRUG Active 2015-04 00:00: 00 Andnicole browne [facility] Drug Class Active 2015-04 00:00: 00 Andnicole browne SULFA (SULFONA MIDE ANTIBIOT ICS) Drug Class Active 2015-04 00:00: 00 Andnicole browne NITROFUR ANTOIN MONOHYD/ M-CRYST DRUG Active 2015-04 00:00: 00 MD Demarco browne [facility] Drug Class Active 2015-04 00:00: 00 Andnicole browne SULFA (SULFONA MIDE ANTIBIOT ICS) Drug Class Active 2015-04 00:00: 00 Andnicole browne NITROFUR ANTOIN MONOHYD/ M-CRYST DRUG Active High Anaphylaxis 2015-04 00:00: 00 Andnicole browne [facility] Drug Class Active 2015-04 00:00: 00 MD Demarco browne [facility] Drug Class Active Low Rash 2015-04 00:00: 00 MD Demarco browne SULFA (SULFONA MIDE ANTIBIOT ICS) Drug Class Active Low Hives 2015-04 00:00: 00 MD Demarco browne NITROFUR ANTOIN MONOHYD/ M-CRYST DRUG Active High Anaphylaxis 2015-04 00:00: 00 MD Demarco browne [facility] Drug Class Active Low Rash 2015-04 00:00: 00 MD Demarco browne SULFA (SULFONA MIDE ANTIBIOT ICS) Drug Class Active Low Hives 2015-04 00:00: 00 Andnicole browne NITROFUR ANTOIN MONOHYD/ M-CRYST DRUG Active High Anaphylaxis 2015-04 00:00: 00 MD Demarco browne [facility] Drug Class Active Low Rash 2015-04 00:00: 00 MD Demarco browne SULFA (SULFONA MIDE ANTIBIOT ICS) Drug Class Active Low Hives 2015-04 00:00: 00 Andnicole browne SULFA (SULFONA MIDE ANTIBIOT ICS) Drug Class Active 2015-04 00:00: 00 Andnicole browne NITROFUR ANTOIN MONOHYD/ M-CRYST DRUG Active High Anaphylaxis 2015-04 00:00: 00 Andnicole browne [facility] Drug Class Active Low Rash 2015-04 00:00: 00 Andnicole browne SULFA (SULFONA MIDE ANTIBIOT ICS) Drug Class Active Low Hives 2015-04 00:00: 00 Andnicole browne NITROFUR ANTOIN MONOHYD/ M-CRYST DRUG Active High Anaphylaxis 2015-04 00:00: 00 MD Demarco browne [facility] Drug Class Active Low Rash 2015-04 00:00: 00 Andnicole browne SULFA (SULFONA MIDE ANTIBIOT ICS) Drug Class Active Low Hives 2015-04 00:00: 00 Andnicole browne NITROFUR ANTOIN MONOHYD/ M-CRYST DRUG Active High Anaphylaxis 2015-04 00:00: 00 MD Demarco browne [facility] Drug Class Active Low Rash 2015-04 00:00: 00 MD Demarco browne SULFA (SULFONA MIDE ANTIBIOT ICS) Drug Class Active Low Hives 2015-04 00:00: 00 MD Demarco browne NITROFUR ANTOIN MONOHYD/ M-CRYST DRUG Active High Anaphylaxis 2015-04 00:00: 00 MD Demarco browne [facility] Drug Class Active Low Rash 2015-04 00:00: 00 Andnicole browne SULFA (SULFONA MIDE ANTIBIOT ICS) Drug Class Active Low Hives 2015-04 00:00: 00 Andnicole browne NITROFUR ANTOIN MONOHYD/ M-CRYST DRUG Active High Anaphylaxis 2015-04 00:00: 00 Andnicole browne [facility] Drug Class Active Low Rash 2015-04 00:00: 00 Andnicole browne SULFA (SULFONA MIDE ANTIBIOT ICS) Drug Class Active Low Hives 2015-04 00:00: 00 Andnicole browne NITROFUR ANTOIN MONOHYD/ M-CRYST DRUG Active High Anaphylaxis 2015-04 00:00: 00 MD Demarco browne [facility] Drug Class Active Low Rash 2015-04 00:00: 00 MD Demarco browne SULFA (SULFONA MIDE ANTIBIOT ICS) Drug Class Active Low Hives 2015-04 00:00: 00 Andnicole browne NITROFUR ANTOIN MONOHYD/ M-CRYST DRUG Active High Anaphylaxis 2015-04 00:00: 00 MD Demarco browne [facility] Drug Class Active Low Rash 2015-04 00:00: 00 Andnicole browne SULFA (SULFONA MIDE ANTIBIOT ICS) Drug Class Active Low Hives 2015-04 00:00: 00 MD Demarco browne NITROFUR ANTOIN MONOHYD/ M-CRYST DRUG Active High Anaphylaxis 2015-04 00:00: 00 Andnicole browne NITROFUR ANTOIN MONOHYD/ M-CRYST DRUG Active 2015-04 00:00: 00 MD Demarco browne [facility] Drug Class Active Low Rash 2015-04 00:00: 00 MD Demarco browne SULFA (SULFONA MIDE ANTIBIOT ICS) Drug Class Active Low Hives 2015-04 00:00: 00 MD Demarco browne NITROFUR ANTOIN MONOHYD/ M-CRYST DRUG Active High Anaphylaxis 2015-04 00:00: 00 MD Demarco browne [facility] Class Active Low Rash 2015-04 00:00: 00 MD Demarco browne SULFA (SULFONA MIDE ANTIBIOT ICS) Drug Class Active Low Hives 2015-04 00:00: 00 MD Demarco browne NITROFUR ANTOIN MONOHYD/ M-CRYST DRUG Active High Anaphylaxis 2015-04 00:00: 00 MD Demarco browne [facility] Class Active Low Rash 2015-04 00:00: 00 MD Demarco browne SULFA (SULFONA MIDE ANTIBIOT ICS) Drug Class Active Low Hives 2015-04 00:00: 00 MD Demarco browne [facility] Drug Class Active 2015-04 00:00: 00 MD Demarco browne NITROFUR ANTOIN MONOHYD/ M-CRYST DRUG Active High Anaphylaxis 2015-04 00:00: 00 MD Demarco brwone [facility] Class Active Low Rash 2015-04 00:00: 00 MD Demarco browne SULFA (SULFONA MIDE ANTIBIOT ICS) Drug Class Active Low Hives 2015-04 00:00: 00 MD Demarco browne NITROFUR ANTOIN MONOHYD/ M-CRYST DRUG Active High Anaphylaxis 2015-04 00:00: 00 MD Demarco browne [facility] Drug Class Active Low Rash 2015-04 00:00: 00 MD Demarco browne SULFA (SULFONA MIDE ANTIBIOT ICS) Drug Class Active Low Hives 2015-04 00:00: 00 Andnicole browne SULFA (SULFONA MIDE ANTIBIOT ICS) Drug Class Active 2015-04 00:00: 00 MD Demarco browne NITROFUR ANTOIN MONOHYD/ M-CRYST DRUG Active High Anaphylaxis 2015-04 00:00: 00 MD Demarco browne [facility] Drug Class Active Low Rash 2015-04 00:00: 00 MD Demarco browne SULFA (SULFONA MIDE ANTIBIOT ICS) Drug Class Active Low Hives 2015-04 00:00: 00 MD Demarco browne NITROFUR ANTOIN MONOHYD/ M-CRYST DRUG Active High Anaphylaxis 2015-04 00:00: 00 MD Demarco browne [facility] Class Active Low Rash 2015-04 00:00: 00 MD Demarco browne SULFA (SULFONA MIDE ANTIBIOT ICS) Drug Class Active Low Hives 2015-04 00:00: 00 MD Demarco browne NITROFUR ANTOIN MONOHYD/ M-CRYST DRUG Active High Anaphylaxis 2015-04 00:00: 00 MD Demarco browne [facility] Drug Class Active Low Rash 2015-04 00:00: 00 MD Demarco browne SULFA (SULFONA MIDE ANTIBIOT ICS) Drug Class Active Low Hives 2015-04 00:00: 00 MD Demarco browne NITROFUR ANTOIN MONOHYD/ M-CRYST DRUG Active High Anaphylaxis 2015-04 00:00: 00 MD Demarco browne [facility] Drug Class Active Low Rash 2015-04 00:00: 00 MD Demarco browne SULFA (SULFONA MIDE ANTIBIOT ICS) Drug Class Active Low Hives 2015-04 00:00: 00 MD Demarco browne NITROFUR ANTOIN MONOHYD/ M-CRYST DRUG Active High Anaphylaxis 2015-04 00:00: 00 MD Demarco browne [facility] Drug Class Active Low Rash 2015-04 00:00: 00 MD Demarco browne SULFA (SULFONA MIDE ANTIBIOT ICS) Drug Class Active Low Hives 2015-04 00:00: 00 MD Demarco browne SULFA (SULFONA MIDE ANTIBIOT ICS) Drug Class Active 2015-04 00:00: 00 MD Demarco browne NITROFUR ANTOIN MONOHYD/ M-CRYST DRUG Active 2015-04 00:00: 00 MD Demarco browne NITROFUR ANTOIN MONOHYD/ M-CRYST DRUG Active High Anaphylaxis 2015-04 00:00: 00 MD Demarco browne [facility] Drug Class Active Low Rash 2015-04 00:00: 00 MD Demarco browne SULFA (SULFONA MIDE ANTIBIOT ICS) Drug Class Active Low Hives 2015-04 00:00: 00 MD Demarco browne NITROFUR ANTOIN MONOHYD/ M-CRYST DRUG Active High Anaphylaxis 2015-04 00:00: 00 MD Demarco browne [facility] Drug Class Active Low Rash 2015-04 00:00: 00 MD Demarco browne SULFA (SULFONA MIDE ANTIBIOT ICS) Drug Class Active Low Hives 2015-04 00:00: 00 MD Demarco browne NITROFUR ANTOIN MONOHYD/ M-CRYST DRUG Active High Anaphylaxis 2015-04 00:00: 00 MD Demarco browne [facility] Drug Class Active 2015-04 00:00: 00 MD Demarco browne [facility] Drug Class Active Low Rash 2015-04 00:00: 00 MD Demarco browne SULFA (SULFONA MIDE ANTIBIOT ICS) Drug Class Active Low Hives 2015-04 00:00: 00 MD Demarco browne NITROFUR ANTOIN MONOHYD/ M-CRYST DRUG Active High Anaphylaxis 2015-04 00:00: 00 MD Demarco browne [facility] Drug Class Active Low Rash 2015-04 00:00: 00 Andnicole browne SULFA (SULFONA MIDE ANTIBIOT ICS) Drug Class Active Low Hives 2015-04 00:00: 00 MD Demarco browne NITROFUR ANTOIN MONOHYD/ M-CRYST DRUG Active High Anaphylaxis 2015-04 00:00: 00 Andnicole browne [facility] Drug Class Active Low Rash 2015-04 00:00: 00 Andnicole browne SULFA (SULFONA MIDE ANTIBIOT ICS) Drug Class Active 2015-04 00:00: 00 Andnicole browne SULFA (SULFONA MIDE ANTIBIOT ICS) Drug Class Active Low Hives 2015-04 00:00: 00 MD Demarco browne NITROFUR ANTOIN MONOHYD/ M-CRYST DRUG Active High Anaphylaxis 2015-04 00:00: 00 MD Demarco browne [facility] Drug Class Active Low Rash 2015-04 00:00: 00 MD Demarco browne SULFA (SULFONA MIDE ANTIBIOT ICS) Drug Class Active Low Hives 2015-04 00:00: 00 Andnicole browne NITROFUR ANTOIN MONOHYD/ M-CRYST DRUG Active High Anaphylaxis 2015-04 00:00: 00 MD Demarco browne [facility] Drug Class Active Low Rash 2015-04 00:00: 00 MD Demarco browne SULFA (SULFONA MIDE ANTIBIOT ICS) Drug Class Active Low Hives 2015-04 00:00: 00 MD Demarco browne NITROFUR ANTOIN MONOHYD/ M-CRYST DRUG Active High Anaphylaxis 2015-04 00:00: 00 MD Demarco browne [facility] Drug Class Active Low Rash 2015-04 00:00: 00 Andnicole browne SULFA (SULFONA MIDE ANTIBIOT ICS) Drug Class Active Low Hives 2015-04 00:00: 00 MD Demarco browne NITROFUR ANTOIN MONOHYD/ M-CRYST DRUG Active High Anaphylaxis 2015-04 00:00: 00 MD Demarco browne [facility] Drug Class Active Low Rash 2015-04 00:00: 00 MD Anderso n SULFA (SULFONA MIDE ANTIBIOT ICS) Drug Class Active Low Hives 2015-04 00:00: 00 Andnicole n NITROFUR ANTOIN MONOHYD/ M-CRYST DRUG Active 2015-04 00:00: 00 Andnicole n NITROFUR ANTOIN MONOHYD/ M-CRYST DRUG Active High Anaphylaxis 2015-04 00:00: 00 Andnicole n [facility] Drug Class Active Low Rash 2015-04 00:00: 00 Andnicole n SULFA (SULFONA MIDE ANTIBIOT ICS) Drug Class Active Low Hives 2015-04 00:00: 00 Anderskristal browne NITROFUR ANTOIN MONOHYD/ M-CRYST DRUG Active High Anaphylaxis 2015-04 00:00: 00 Andnicole browne [facility] Drug Class Active Low Rash 2015-04 00:00: 00 Andnicole browne SULFA (SULFONA MIDE ANTIBIOT ICS) Drug Class Active Low Hives 2015-04 00:00: 00 MD Demarco browne [facility] Drug Class Active 2015-04 00:00: 00 Andnicole browne NITROFUR ANTOIN MONOHYD/ M-CRYST DRUG Active High Anaphylaxis 2015-04 00:00: 00 MD Demarco browne [facility] Drug Class Active Low Rash 2015-04 00:00: 00 Andnicole browne SULFA (SULFONA MIDE ANTIBIOT ICS) Drug Class Active Low Hives 2015-04 00:00: 00 Andnicole browne NITROFUR ANTOIN MONOHYD/ M-CRYST DRUG Active High Anaphylaxis 2015-04 00:00: 00 MD Demarco browne [facility] Drug Class Active Low Rash 2015-04 00:00: 00 Anderskristal n SULFA (SULFONA MIDE ANTIBIOT ICS) Drug Class Active Low Hives 2015-04 00:00: 00 Andnicole n SULFA (SULFONA MIDE ANTIBIOT ICS) Drug Class Active 2015-04 00:00: 00 MD Demarco browne NITROFUR ANTOIN MONOHYD/ M-CRYST DRUG Active High Anaphylaxis 2015-04 00:00: 00 MD Demarco browne [facility] Drug Class Active Low Rash 2015-04 00:00: 00 Andnicole browne SULFA (SULFONA MIDE ANTIBIOT ICS) Drug Class Active Low Hives 2015-04 00:00: 00 Andnicole browne NITROFUR ANTOIN MONOHYD/ M-CRYST DRUG Active High Anaphylaxis 2015-04 00:00: 00 MD Demarco browne [facility] Drug Class Active Low Rash 2015-04 00:00: 00 Andnicole browne SULFA (SULFONA MIDE ANTIBIOT ICS) Drug Class Active Low Hives 2015-04 00:00: 00 Andnicole browne NITROFUR ANTOIN MONOHYD/ M-CRYST DRUG Active High Anaphylaxis 2015-04 00:00: 00 MD Demarco browne [facility] Drug Class Active Low Rash 2015-04 00:00: 00 MD Demarco browne SULFA (SULFONA MIDE ANTIBIOT ICS) Drug Class Active Low Hives 2015-04 00:00: 00 MD Demarco browne NITROFUR ANTOIN MONOHYD/ M-CRYST DRUG Active High Anaphylaxis 2015-04 00:00: 00 MD Demarco browne [facility] Drug Class Active Low Rash 2015-04 00:00: 00 MD Demarco browne SULFA (SULFONA MIDE ANTIBIOT ICS) Drug Class Active Low Hives 2015-04 00:00: 00 MD Demarco browne NITROFUR ANTOIN MONOHYD/ M-CRYST DRUG Active 2015-04 00:00: 00 MD Demarco browne NITROFUR ANTOIN MONOHYD/ M-CRYST DRUG Active High Anaphylaxis 2015-04 00:00: 00 MD Demarco browne [facility] Drug Class Active Low Rash 2015-04 00:00: 00 Andnicole browne SULFA (SULFONA MIDE ANTIBIOT ICS) Drug Class Active Low Hives 2015-04 00:00: 00 MD Demarco browne NITROFUR ANTOIN MONOHYD/ M-CRYST DRUG Active High Anaphylaxis 2015-04 00:00: 00 MD Demarco browne [facility] Drug Class Active Low Rash 2015-04 00:00: 00 MD Demarco browne SULFA (SULFONA MIDE ANTIBIOT ICS) Drug Class Active Low Hives 2015-04 00:00: 00 Andnicole browne NITROFUR ANTOIN MONOHYD/ M-CRYST DRUG Active High Anaphylaxis 2015-04 00:00: 00 Andnicole browne [facility] Drug Class Active 2015-04 00:00: 00 Andnicole browne [facility] Drug Class Active Low Rash 2015-04 00:00: 00 Andnicole browne SULFA (SULFONA MIDE ANTIBIOT ICS) Drug Class Active Low Hives 2015-04 00:00: 00 Andnicole browne NITROFUR ANTOIN MONOHYD/ M-CRYST DRUG Active High Anaphylaxis 2015-04 00:00: 00 Andnicole browne [facility] Drug Class Active Low Rash 2015-04 00:00: 00 Andnicole browne SULFA (SULFONA MIDE ANTIBIOT ICS) Drug Class Active Low Hives 2015-04 00:00: 00 Andnicole browne NITROFUR ANTOIN MONOHYD/ M-CRYST DRUG Active High Anaphylaxis 2015-04 00:00: 00 Andnicole browne SULFA (SULFONA MIDE ANTIBIOT ICS) Drug Class Active 2015-04 00:00: 00 MD Demarco browne [facility] Drug Class Active Low Rash 2015-04 00:00: 00 Andnicole browne SULFA (SULFONA MIDE ANTIBIOT ICS) Drug Class Active Low Hives 2015-04 00:00: 00 Andnicole browne NITROFUR ANTOIN MONOHYD/ M-CRYST DRUG Active High Anaphylaxis 2015-04 00:00: 00 MD Demarco browne [facility] Drug Class Active Low Rash 2015-04 00:00: 00 Andnicole browne SULFA (SULFONA MIDE ANTIBIOT ICS) Drug Class Active Low Hives 2015-04 00:00: 00 Andnicole browne NITROFUR ANTOIN MONOHYD/ M-CRYST DRUG Active High Anaphylaxis 2015-04 00:00: 00 MD Demarco browne [facility] Drug Class Active Low Rash 2015-04 00:00: 00 MD Demarco browne SULFA (SULFONA MIDE ANTIBIOT ICS) Drug Class Active Low Hives 2015-04 00:00: 00 Andnicole browne NITROFUR ANTOIN MONOHYD/ M-CRYST DRUG Active High Anaphylaxis 2015-04 00:00: 00 MD Demarco browne [facility] Drug Class Active Low Rash 2015-04 00:00: 00 MD Demarco browne SULFA (SULFONA MIDE ANTIBIOT ICS) Drug Class Active Low Hives 2015-04 00:00: 00 Andnicole browne NITROFUR ANTOIN MONOHYD/ M-CRYST DRUG Active High Anaphylaxis 2015-04 00:00: 00 MD Demarco browne [facility] Drug Class Active Low Rash 2015-04 00:00: 00 Andnicole browne SULFA (SULFONA MIDE ANTIBIOT ICS) Drug Class Active Low Hives 2015-04 00:00: 00 MD Demarco browne NITROFUR ANTOIN MONOHYD/ M-CRYST DRUG Active High Anaphylaxis 2015-04 00:00: 00 MD Demarco browne [facility] Drug Class Active Low Rash 2015-04 00:00: 00 MD Demarco browne SULFA (SULFONA MIDE ANTIBIOT ICS) Drug Class Active Low Hives 2015-04 00:00: 00 MD Demarco browne NITROFUR ANTOIN MONOHYD/ M-CRYST DRUG Active High Anaphylaxis 2015-04 00:00: 00 MD Demarco browne [facility] Drug Class Active Low Rash 2015-04 00:00: 00 Andnicole browne NITROFUR ANTOIN MONOHYD/ M-CRYST DRUG Active 2015-04 00:00: 00 MD Demarco browne SULFA (SULFONA MIDE ANTIBIOT ICS) Drug Class Active Low Hives 2015-04 00:00: 00 Andnicole browne NITROFUR ANTOIN MONOHYD/ M-CRYST DRUG Active High Anaphylaxis 2015-04 00:00: 00 MD Demarco browne [facility] Drug Class Active Low Rash 2015-04 00:00: 00 MD Demarco browne SULFA (SULFONA MIDE ANTIBIOT ICS) Drug Class Active Low Hives 2015-04 00:00: 00 MD Demarco browne NITROFUR ANTOIN MONOHYD/ M-CRYST DRUG Active High Anaphylaxis 2015-04 00:00: 00 Andnicole browne [facility] Drug Class Active Low Rash 2015-04 00:00: 00 MD Demarco browne SULFA (SULFONA MIDE ANTIBIOT ICS) Drug Class Active Low Hives 2015-04 00:00: 00 Andnicole browne [facility] Drug Class Active 2015-04 00:00: 00 Andnicole browne NITROFUR ANTOIN MONOHYD/ M-CRYST DRUG Active High Anaphylaxis 2015-04 00:00: 00 Andnicole browne [facility] Drug Class Active Low Rash 2015-04 00:00: 00 Andnicole browne SULFA (SULFONA MIDE ANTIBIOT ICS) Drug Class Active Low Hives 2015-04 00:00: 00 Andnicole browne NITROFUR ANTOIN MONOHYD/ M-CRYST DRUG Active High Anaphylaxis 2015-04 00:00: 00 MD Demarco browne [facility] Drug Class Active Low Rash 2015-04 00:00: 00 MD Demarco browne SULFA (SULFONA MIDE ANTIBIOT ICS) Drug Class Active Low Hives 2015-04 00:00: 00 Andnicole browne SULFA (SULFONA MIDE ANTIBIOT ICS) Drug Class Active 2015-04 00:00: 00 MD Demarco browne NITROFUR ANTOIN MONOHYD/ M-CRYST DRUG Active High Anaphylaxis 2015-04 00:00: 00 MD Demarco browne [facility] Drug Class Active Low Rash 2015-04 00:00: 00 MD Demarco browne SULFA (SULFONA MIDE ANTIBIOT ICS) Drug Class Active Low Hives 2015-04 00:00: 00 MD Demarco browne NITROFUR ANTOIN MONOHYD/ M-CRYST DRUG Active High Anaphylaxis 2015-04 00:00: 00 MD Demarco browne [facility] Drug Class Active Low Rash 2015-04 00:00: 00 MD Demarco browne SULFA (SULFONA MIDE ANTIBIOT ICS) Drug Class Active Low Hives 2015-04 00:00: 00 MD Demarco browne NITROFUR ANTOIN MONOHYD/ M-CRYST DRUG Active High Anaphylaxis 2015-04 00:00: 00 MD Demarco browne [facility] Drug Class Active Low Rash 2015-04 00:00: 00 MD Demarco browne SULFA (SULFONA MIDE ANTIBIOT ICS) Drug Class Active Low Hives 2015-04 00:00: 00 MD Demarco browne NITROFUR ANTOIN MONOHYD/ M-CRYST DRUG Active High Anaphylaxis 2015-04 00:00: 00 MD Demarco browne [facility] Drug Class Active Low Rash 2015-04 00:00: 00 MD Demarco browne SULFA (SULFONA MIDE ANTIBIOT ICS) Drug Class Active Low Hives 2015-04 00:00: 00 Andnicole browne NITROFUR ANTOIN MONOHYD/ M-CRYST DRUG Active High Anaphylaxis 2015-04 00:00: 00 MD Demarco browne [facility] Drug Class Active Low Rash 2015-04 00:00: 00 MD Demarco browne SULFA (SULFONA MIDE ANTIBIOT ICS) Drug Class Active Low Hives 2015-04 00:00: 00 MD Demarco browne NITROFUR ANTOIN MONOHYD/ M-CRYST DRUG Active High Anaphylaxis 2015-04 00:00: 00 MD Demarco browne [facility] Drug Class Active Low Rash 2015-04 00:00: 00 MD Demarco browne SULFA (SULFONA MIDE ANTIBIOT ICS) Drug Class Active Low Hives 2015-04 00:00: 00 MD Demarco browne NITROFUR ANTOIN MONOHYD/ M-CRYST DRUG Active High Anaphylaxis 2015-04 00:00: 00 MD Demarco browne [facility] Drug Class Active Low Rash 2015-04 00:00: 00 MD Demarco browne SULFA (SULFONA MIDE ANTIBIOT ICS) Drug Class Active Low Hives 2015-04 00:00: 00 MD Demarco browne NITROFUR ANTOIN MONOHYD/ M-CRYST DRUG Active High Anaphylaxis 2015-04 00:00: 00 MD Demarco browne [facility] Drug Class Active Low Rash 2015-04 00:00: 00 MD Demarco browne NITROFUR ANTOIN MONOHYD/ M-CRYST DRUG Active 2015-04 00:00: 00 MD Demarco browne SULFA (SULFONA MIDE ANTIBIOT ICS) Drug Class Active Low Hives 2015-04 00:00: 00 MD Demarco browne NITROFUR ANTOIN MONOHYD/ M-CRYST DRUG Active High Anaphylaxis 2015-04 00:00: 00 MD Demarco browne [facility] Drug Class Active Low Rash 2015-04 00:00: 00 MD Demarco browne SULFA (SULFONA MIDE ANTIBIOT ICS) Drug Class Active Low Hives 2015-04 00:00: 00 MD Demarco browne Social History Social Habit Start Date Stop Date Quantity Comments Source Exposure to SARS-CoV-2 (event) 2022-01-02 00:00:00 2022-01-12 08:33:00 Not sure [facility] Sex Assigned At 1940 00:00:00 1940 00:00:00 [facility] Smoking Status Start Date Stop Date Source Tobacco smoking consumption unknown [facility] Medications Ordered Medication Name Filled Medication Name Start Date Stop Date Current Medication? Ordering Clinician Indication Dosage Frequency Signature (SIG) Comments Components Source metroNIDAZO LE (FLAGYL) tablet 500 mg 2021-04 18:00: 00 01-12 17:12 :00 No 500mg 500 mg, Oral, ONCE, 1 dose, On Tue01/12/22 at 1300, Routine
Reason for Anti-Infec tive: Documented Infection< br>Documen flaco Infection Site: Abdominal< br>Duratio n of Therapy: Other (see Comments) [facility] ciprofloxac in HCl (CIPRO) tablet 500 mg 2021-04 18:00: 00 01-12 17:12 :00 No 500mg 500 mg, Oral, ONCE, 1 dose, On Tue01/12/22 at 1300, LEON
Re stricted use approved by: EMERGENCY DEPARTMENT PRESCRIBER
Reason for Anti-Infec tive: Documented Infection< br>Documen flaco Infection Site: Abdominal< br>Duratio n of Therapy: Other (see Comments) [facility] iopamidol (ISOVUE 370-500 mL) injection 50 mL 2021-04 14:45: 00 01-12 14:45 :00 No [id number] 50mL 50 mL, Intravenou s, ONCE, 1 dose, On Tue01/12/22 at 1000, Routine [facility] acetaminoph en (TYLENOL) tablet 1,000 mg 2021-04 14:45: 00 01-12 13:45 :00 No 1000mg 1,000 mg, Oral, ONCE, 1 dose, On Tue01/12/22 at 0945, Routine [facility] telmisartan 80 mg tablet 2021-04 12:40: 33 Yes 80mg Take 80 mg by mouth in the morning. [facility] carvedilol (COREG CR) 20 mg 24 hr capsule 2021-04 12:40: 33 Yes 20mg Take 20 mg by mouth in the morning. [facility] pantoprazol e (PROTONIX) 40 mg EC tablet 2021-04 12:40: 33 Yes 40mg Take 40 mg by mouth in the morning. [facility] atorvastati n 40 mg tablet 2021-04 12:40: 33 Yes 40mg Take 40 mg by mouth at bedtime. [facility] cephALEXin (KEFLEX) 250 mg capsule 2021-04 12:40: 33 Yes 250mg Take 250 mg by mouth in the morning. [facility] metroNIDAZO LE 500 mg tablet 2021-04 00:00: 00 01-18 04:59 :00 No [id number] 500mg Take 1 tablet by mouth every 8 (eight) hours for [address] [facility] ciprofloxac in HCl 500 mg tablet 2021-04 00:00: 00 01-18 04:59 :00 No [id number] 500mg Take 1 tablet by mouth in the morning and 1 tablet in the evening. Do all this for [address] [facility] Vital Signs Vital Name Observation Time Observation Value Comments S ource Heart rate 2022-01-12 16:00:00 76 /min [facility] Oxygen saturation in Arterial blood by Pulse oximetry 2022-01-12 16:00:00 97 /min [facility] Systolic blood pressure 2022-01-12 15:45:00 156 mm[Hg] [facility] Diastolic blood pressure 2022-01-12 15:45:00 57 mm[Hg] [facility] Respiratory rate 2022-01-12 15:45:00 19 /min [facility] Body temperature 2022-01-12 13:35:00 37.83 Izzy [facility] Body height 2022-01-12 13:35:00 162.6 cm [facility] Body weight 2022-01-12 13:35:00 69.4 kg [facility] BMI 2022-01-12 13:35:00 26.26 kg/m2 [facility] Procedures Procedure Date / Time Performed Performing Clinicia n Source CT ABDOMEN PELVIS W CONTRAST 2022-01-12 14:50:16 Tracy Jin [facility] LIPASE 2022-01-12 13:45:00 Tracy Jin [facility] COMP. METABOLIC PANEL (52020) 2022-01-12 13:45:00 Tracy Jin [facility] CBC WITH DIFF 2022-01-12 13:45:00 Tracy Jin [facility] NOTICE OF PRIVACY PRACTICES 2022-01-12 13:29:37 Doctor Unassigned, [place] [facility] CONSENT/REFUSAL FOR DIAGNOSIS AND TREATMENT 2022-01-12 13:29:17 Doctor Unassigned, [place] [facility] Encounters Start Date/Time End Date/Time Encounter Type Admission Type Attending Clinicians Care Facility Care Department Encounter ID Source 2019-11-23 10:08:46 Outpatient SYSTEM, PROVIDER LARRY JUAREZ [id number] MD Demarco browne 2025-01-15 14:26:44 2025-01-15 14:26:44 Outpatient CHUCKY GREENBERG MDA, MDA [id number] MD Demarco browne 2025 10:46:40 2025 10:46:40 Outpatient KIANA CASTANON MDA, MDA [id number] MD Demarco browne 2025 08:55:56 2025 08:55:56 Outpatient KIANA CASTANON MDA MDA [id number] MD Demarco browne 2025 08:55:07 2025 08:55:07 Outpatient IKANA CASTANON MDA MDA [id number] MD Demarco browne 2025 08:44:43 2025 08:51:49 Outpatient KIANA CASTANON MDA MDA [id number] MD Demarco browne 2024-10-02 09:59:53 2024-10-02 09:59:53 Outpatient CHUCKY GREENBERG MDA MDA [id number] MD Demarco browne 2024-09-21 11:52:35 2024-09-21 11:52:35 Outpatient TANIA LANGLEY MDA MDA [id number] MD Demarco browne 2024-09-21 11:44:34 2024-09-21 11:50:01 Outpatient EL TANIA GARCIA MDA MDA [id number] MD Demarco browne 2024-06-26 07:58:38 2024-06-26 07:58:38 Outpatient CHUCKY GREENBERG MDA MDA [id number] MD Demarco browne 2024-06-22 11:48:01 2024-06-22 11:50:34 Outpatient CHUCKY GREENBERG MDA MDA [id number] MD Demarco browne 2024-06-13 11:18:25 2024-06-13 11:18:25 Outpatient CHUCKY GREENBERG MDA MDA [id number] MD Demarco browne 2024-06-04 15:39:23 2024-06-04 15:49:01 Outpatient VIDAL MARTINEZ MDA MDA [id number] MD Demarco browne 2024-06-04 11:20:19 2024-06-04 11:32:42 Outpatient EL SENG ADELINE MDA MDA [id number] MD Demarco browne 2024-05-29 06:34:00 2024-06-02 11:48:00 Inpatient EL IVANA, CHUCKY MDA Urology [id number] MD Demarco browne 2024-05-30 09:26:11 2024-05-30 10:16:12 Inpatient [facility] KELSIE LAWRENCEOCENT [id number]29 10:31:11 2024-05-29 10:31:11 Outpatient CHUCKY GREENBERG MDA MDA [id number] MD Demarco browne 2024-05-28 09:45:00 2024-05-28 23:59:00 Outpatient EL IVANA SURENA [facility] [id number] [facility] 2024-05-28 11:55:10 2024-05-28 15:39:26 Outpatient NADIYA GREENBERGNA MDA [facility] [id number] [facility] 2024-05-24 18:01:06 2024-05-24 23:59:00 Outpatient NADIYA GREENBERGNA MDA [facility] [id number] [facility] 2024-05-24 14:22:13 2024-05-24 16:37:33 Outpatient DEL HEATH SURENA MDA [facility] [id number] [facility] 2024-05-24 14:22:21 2024-05-24 15:30:37 Outpatient DEL HEATH SURENA MDA [facility] [id number] [facility] 2024-05-22 10:14:32 2024-05-22 10:14:41 Outpatient NADIYA GREENBERGNA MDA MDA [id number] [facility] 2024-05-15 10:54:29 2024-05-15 10:54:29 Outpatient DEL HEATH SURENA MDA MDA [id number] [facility] 2024-05-10 09:56:35 2024-05-10 09:56:35 Outpatient DEL HEATH SURENA MDA [facility] [id number] [facility] 2024-05-10 09:48:00 2024-05-10 09:53:55 Outpatient EL IVANA SURENA MDA MDA [id number] MD Demarco browne 2023-08-23 13:08:59 2023-08-23 23:59:00 Outpatient EL IVANA SURENA MDA MDA [id number] MD Demarco browne 2023-07-29 11:11:00 2023-07-30 12:50:00 Outpatient TAYA HENRIQUEZ MDA Inter Rad [id number] MD Demarco browne 2023-07-29 06:45:00 2023-07-29 06:45:00 Outpatient NADIYA GREENBERGNA MDA MDA [id number] MD Demarco browne 2023-07-29 06:00:00 2023-07-29 06:44:00 Outpatient SREEKANTH MINOR MDA MDA [id number] [facility] 2023-07-28 08:17:10 2023-07-28 08:17:10 [id number] 00:00:00 2023-07-27 00:00:00 Outpatient SREEKANTH MINOR MDA MDA [id number] MD Demarco browne 2023-07-26 14:41:22 2023-07-26 23:59:00 Outpatient DEL HEATH NADIYANA MDA MDA [id number] [facility] 2023-07-21 00:00:00 2023-07-21 00:00:00 Outpatient SREEKANTH MINOR MDA MDA [id number] MD Demarco browne 2023-05-30 07:52:12 2023-05-30 23:59:00 Outpatient EL IVANA NADIYANA MDA MDA [id number] MD Demarco browne 2023-05-30 07:52:12 2023-05-30 23:59:00 Outpatient DEL IVANA SURENA MDA MDA [id number] MD Demarco browne 2023-05-30 06:34:01 2023-05-30 07:57:25 Outpatient EL MARQUISAUNDREA, LEVAR MDA MDA [id number] MD Demarco browne 2023-05-30 06:33:45 2023-05-30 07:51:00 Outpatient EL MALLET LEVAR MDA MDA [id number] MD Demarco browne 2023-05-27 11:51:00 2023-05-27 23:59:00 Outpatient EL IVANA SURENA MDA MDA [id number] MD Demarco browne 2023-05-27 07:18:20 2023-05-27 07:18:20 Outpatient DEL GRACIA LEVAR MDA MDA [id number] MD Demarco browne 2023-05-23 00:00:00 2023-05-23 00:00:00 Outpatient LEVAR MCLEAN MDA MDA [id number] MD Demarco browne 2023-05-10 14:45:14 2023-05-10 14:45:14 Outpatient CHUCKY GREENBERG MDA MDA [id number] MD Demarco browne 2023-05-06 10:22:21 2023-05-06 23:59:00 Outpatient CHUCKY GREENBERG MDA MDA [id number] MD Demarco browne 2023-05-06 10:57:11 2023-05-06 10:57:11 Outpatient CHUCKY GREENBERG MDA MDA [id number] MD Demarco browne 2022-05-10 13:43:55 2022-05-10 23:25:21 Outpatient CHUCKY GREENBERG MDA MDA [id number] MD Demarco browne 2022-05-09 09:21:21 2022-05-09 23:59:00 Outpatient TANIA LANGLEY MDA MDA [id number] MD Demarco browne 2022-05-09 06:14:10 2022-05-09 09:20:00 Outpatient TANIA LANGLEY MDA MDA [id number] MD Demarco browne 2022-01-12 08:33:00 2022-01-12 13:16:00 Emergency X TRACY JIN [facility] ERT [id number] [facility] 2022-01-12 08:33:00 2022-01-12 13:16:00 Emergency Tracy Jin [facility] [id number] [facility] 2020-05-19 08:06:49 2020-05-19 08:06:49 Outpatient CHUCKY GREENBERG MDA MDA [id number] MD Demarco browne 2020-05-19 00:00:00 2020-05-19 00:00:00 Outpatient CHUCKY GREENBERG MDA MDA [id number] MD Demarco browne 2020-05-18 13:31:56 2020-05-18 23:59:00 Outpatient CHUCKY GREENBERG MDA MDA [id number] MD Demarco browne 2020-05-18 13:19:37 2020-05-18 13:30:00 Outpatient CHUCKY GREENBERG MDA MDA [id number] MD Demarco browne 2019-11-19 14:41:53 2019-11-19 14:41:53 Outpatient CHUCKY GREENBERG MDA MDA [id number] MD Demarco browne 2019-11-19 13:32:25 2019-11-19 13:32:25 Outpatient CHUCKY GREENBERG MDA MDA [id number] MD Demarco browne 2019-11-12 11:07:17 2019-11-12 11:07:17 Outpatient CHUCKY HEATH MDA MDA [id number] MD Demarco browne
[2025-01-23 07:01] LABS: Absolute Lymphocytes (CBC) 1.2 K/uL (0.7-4.9); Hematocrit 36.0 % (36.0-45.0); Hemoglobin 12.1 g/dL (12.0-15.0); MCH 26.7 pg (27.0-35.0); MCHC 33.6 g/dL (32.0-36.0); MCV 79.5 fL (80-100); MPV 6.3 fL (7.6-11.3); Nucleated RBC Absolute Count 0.0 (0-0); Nucleated Red Blood Cells % 0.0 % (0-0); RBC Red Blood Cell Count 4.53 M/uL (3.86-4.86); White Blood Count 4.20 thou/uL (4.3-10.9)
[2025-01-23 07:25] LABS: Anion Gap 9.7 mEq/L (5.0-15.0); BUN Blood Urea Nitrogen 17.0 mg/dL (7-18); Glucose Level 112.0 mg/dL (74-106); NT PRO-BNP 532.0 pg/mL (<450); Potassium 3.7 mEq/L (3.5-5.1); Troponin High Sensitivity 8.7 pg/mL (<58.9)
[2025-01-23] MEDS ORDERED: NA CHLORIDE 0.9% 500 ML ONE (07:32)
--- NOTE | 2025-01-23 07:45 | RAD REPORT ---
EXAM: CT CHEST, ABDOMEN AND PELVIS WITHOUT CONTRAST CLINICAL INDICATION: Chest and abdominal pain status post fall TECHNIQUE: CT chest, abdomen and pelvis was performed, without IV contrast, as per department protoco l. Axial, sagittal and coronal reconstructions were obtained. One or more of the following dose reduction techniques were used: Automated exposure control, adjustment of the mA and/or kV according to the patient size, and/or iterative reconstruction. Unless otherwise specified, incidental findings do not require dedicated imaging follow-up. The lack of IV and oral contrast limits evaluation of the mediastinum, jose cruz, vessels, organs and devika l. COMPARISON: None FINDINGS: A pulmonary contusion not seen. No mediastinal hematoma. Bilateral breast implants. Old fracture left humerus No pleural effusion. No pericardial effusion. Liver, spleen, pancreas, adrenals kidneys and bladder do not demonstrate a traumatic injury. Post surgical changes right shoulder and right hip. Multiple gallstones. Gallbladder wall does not appear thickened. Right kidney absent. 2.8 cm mass left kidney. Hounsfield unit 28 There is no evidence of diverticulitis IMPRESSION: No acute traumatic injury seen chest/abdomen/pelvis Cholelithiasis 2.8 cm left renal mass. Ultrasound recommended
--- NOTE | 2025-01-23 07:46 | RAD REPORT ---
Procedure: Chest Single View HISTORY: Chest pain COMPARISON: none FINDINGS: The lungs appear clear of acute infiltrate. No significant pleural effusion noted. The heart is mildly enlarged. . IMPRESSION: No acute abnormality is displayed.
--- NOTE | 2025-01-23 07:46 | RAD REPORT ---
EXAMINATION: CT HEAD WITHOUT CONTRAST CT CERVICAL SPINE WITHOUT CONTRAST CLINICAL INDICATION: Head and neck injury status post fall. Head and neck pain TECHNIQUE: Axial CT images from the skull base to the vertex without intravenous contrast. Axial CT i mages through the cervical spine were obtained without intravenous contrast. Sagittal and coronal reformatted images were created from the data set. Coronal and sagittal reformatted images were creat ed from the data set. One or more of the following dose reduction techniques were used: Automated exposure control, adjustment of the mA and/or kV according to patient size, and/or iterative reconstr uction. Unless otherwise specified, incidental findings do not require dedicated imaging follow-up. [id number]. Comparison: none FINDINGS: An intracranial bleed is not seen. 13 mm pituitary mass. Ventricles are normal in caliber. Mild to moderate low-density paraventricular, deep and subcortical white matter may represent ischemi c changes secondary to small vessel disease. No extra-axial fluid collection. No fluid within the sinuses/mastoids. Mild mucoperiosteal thickening left maxillary and ethmoid sinus No fracture or dislocation is seen involving the cervical spine. Mild anterior subluxation C4 on C5. Spondylosis cervical spine. No significant prevertebral soft tiss ue swelling seen. 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 If the patient continues to have symptoms to suggest acute SAAS ARCHITECT/spinal pathology then MRI would be rec ommended
[2025-01-23] MEDS ORDERED: ACETAMINOPHEN 500 MG TAB ONE (08:11)
[2025-01-23] MEDS ORDERED: LIDOCAINE 2% W/EPI 1:200,000 MPF 20 ML VIAL IM ONE (08:12)
[2025-01-23] MEDS ORDERED: TDAP (DIPHTH,PERTUSS(ACELL),TET VAC) 0.5 ML VIAL IMVAC ONE (08:16)
[2025-01-23 08:42] LABS: Urine Microscopic Reflex YN NO UMIC
--- NOTE | 2025-01-23 09:00 | EDPHYS ---
Physician Documentation [facility] Name: Heather Lynne Age: 85 yrs Sex: Female : 1940 Arrival Date: 01/23/2025 Time: 06:32 Bed 5 Private MD: ED Physician Bin Reynoso HPI: 01/23 08:52 This 85 yrs old Female presents to ER via EMS with complaints of Fall Injury. corie 08:52 Details of fall: The patient fell from an upright position, while walking. Onset: The corie symptoms/episode began/occurred and improved just prior to arrival, this morning. Associated injuries: The patient sustained injury to the head, contusion, laceration, pain. Severity of symptoms: At their worst the symptoms were mild, in the emergency department the symptoms are unchanged. The patient has not experienced similar symptoms in the past. Historical: - Allergies: 06:38 PENICILLINS; nh2 06:38 Sulfa (Sulfonamide Antibiotics); nh2 06:38 Macrobid; nh2 - PMHx: 06:38 Hypertensive disorder; nh2 - PSHx: 06:38 knee replacement x2; shoulder surgery; nh2 - Immunization history:: Adult Immunizations up to date. - Infectious Disease History:: Denies. - Social history:: Smoking status: Patient denies any tobacco usage or history of. - Family history:: not pertinent. ROS: 08:52 Constitutional: Negative for fever, chills, and weight loss, Eyes: Negative for injury, corie pain, redness, and discharge, ENT: Negative for injury, pain, and discharge, Neck: Negative for injury, pain, and swelling, Cardiovascular: Negative for chest pain, palpitations, and edema, Respiratory: Negative for shortness of breath, cough, wheezing, and pleuritic chest pain, Abdomen/GI: Negative for abdominal pain, nausea, vomiting, diarrhea, and constipation, Back: Negative for injury and pain, : Negative for injury, bleeding, discharge, and swelling, MS/Extremity: Negative for injury and deformity, Neuro: Negative for headache, weakness, numbness, tingling, and seizure, Psych: Negative for depression, anxiety, suicide ideation, homicidal ideation, and hallucinations, Allergy/Immunology: Negative for hives, rash, and allergies, Endocrine: Negative for neck swelling, polydipsia, polyuria, polyphagia, and marked weight changes, Hematologic/Lymphatic: Negative for swollen nodes, abnormal bleeding, and unusual bruising, 08:52 Skin: Positive for abrasion(s), laceration(s), swelling, of the face and left eye, Exam: 08:52 Constitutional: This is a well developed, well nourished patient who is awake, alert, corie and in no acute distress. Eyes: Pupils equal round and reactive to light, extra-ocular motions intact. Lids and lashes normal. Conjunctiva and sclera are non-icteric and not injected. Cornea within normal limits. Periorbital areas with no swelling, redness, or edema. ENT: Nares patent. No nasal discharge, no septal abnormalities noted. Tympanic membranes are normal and external auditory canals are clear. Oropharynx with no redness, swelling, or masses, exudates, or evidence of obstruction, uvula midline. Mucous membranes moist. Neck: Trachea midline, no thyromegaly or masses palpated, and no cervical lymphadenopathy. Supple, full range of motion without nuchal rigidity, or vertebral point tenderness. No Meningismus. Chest/axilla: Normal chest wall appearance and motion. Nontender with no deformity. No lesions are appreciated. Cardiovascular: Regular rate and rhythm with a normal S1 and S2. No gallops, murmurs, or rubs. Normal PMI, no JVD. No pulse deficits. Respiratory: Lungs have equal breath sounds bilaterally, clear to auscultation and percussion. No rales, rhonchi or wheezes noted. No increased work of breathing, no retractions or nasal flaring. Abdomen/GI: Soft, non-tender, with normal bowel sounds. No distension or tympany. No guarding or rebound. No evidence of tenderness throughout. Back: No spinal tenderness. No costovertebral tenderness. Full range of motion. Female : Normal external genitalia. Skin: Warm, dry with normal turgor. Normal color with no rashes, no lesions, and no evidence of cellulitis. MS/ Extremity: Pulses equal, no cyanosis. Neurovascular intact. Full, normal range of motion., bilateral aka Neuro: Awake and alert, GCS 15, oriented to person, place, time, and situation. Cranial nerves II-XII grossly intact. Motor strength 5/5 in all extremities. Sensory grossly intact. Cerebellar exam normal. Normal gait. Psych: Awake, alert, with orientation to person, place and time. Behavior, mood, and affect are within normal limits. 08:52 Head/face: Noted is contusion, a laceration(s), that is deep, 2.5 cm(s), 09:05 ECG was reviewed by the Attending Physician. corie Vital Signs: 06:36 BP 153 / 100; Pulse 62; Resp 18; Temp 98; Pulse Ox 100% on R/A; nh2 09:08 BP 108 / 73; Pulse 62; Resp 16; Pulse Ox 100% on R/A; cc6 10:07 BP 179 / 69; Pulse 70; Resp 18; Pulse Ox 100% on R/A; cc6 NIH Stroke Scale Scores: 06:43 NIHSS Score: 0 nh2 Cheyenne Coma Score: 06:43 Eye Response: spontaneous(4). Motor Response: obeys commands(6). Verbal Response: nh2 oriented(5). Total: 15. Laceration: 08:56 Wound Repair of 2.5cm ( 1.0in ) subcutaneous laceration to left eye. Irregularly corie shaped.. Distal neuro/vascular/tendon intact. Anesthesia: Local anesthetic administered with 3 mls of 1% lidocaine w/ Epi. Wound prep: Simple cleansing by me. Skin closed with 3 6-0 Prolene using interrupted sutures and sterile technique. Dressed with Neosporin, non-adherent dressing. Patient tolerated well. MDM: 06:37 Medical Screening Exam initiated tt7 08:52 Differential diagnosis: abrasion, closed head injury, contusion, fracture, laceration, corie multiple trauma, sprain, strain. Data reviewed: vital signs, nurses notes, EMS record, lab test result(s), EKG, radiologic studies, CT scan, plain films. Consideration of Admission/Observation Escalation of care including admission/observation considered. I considered the following discharge prescriptions or medication management in the emergency department Medications were administered in the Emergency Department. See MAR. Independent interpretation of the following test(s) in the Emergency Department EKG: See my EKG interpretation above. Test considered but Not performed: MRI: no mri. Historians other than the Patient: Family Member: family well informed , from [facility]. Care significantly affected by the following chronic conditions: Hypertension. 01/23 06:52 Order name: Basic Metabolic Panel; Complete Time: 08:48 tt7 01/23 06:52 Order name: CBC with Diff; Complete Time: 08:48 tt7 01/23 06:52 Order name: NT PRO-BNP; Complete Time: 08:48 tt7 01/23 06:52 Order name: Troponin HS; Complete Time: 08:48 tt7 01/23 07:20 Order name: UA Rfx Turner Cult if indicated; Complete Time: 08:48 corie 01/23 06:52 Order name: XRAY Chest (1 view); Complete Time: 08:48 tt7 01/23 06:52 Order name: CT Head C Spine; Complete Time: 08:48 tt7 01/23 07:30 Order name: Chest Abd Pelvis Wo Con; Complete Time: 08:48 EDMS 01/23 06:52 Order name: EKG; Complete Time: 06:53 tt7 01/23 06:52 Order name: Cardiac monitoring; Complete Time: 06:53 tt7 01/23 06:52 Order name: EKG - Nurse/Tech; Complete Time: 06:53 tt7 01/23 06:52 Order name: IV Saline Lock; Complete Time: 06:53 tt7 01/23 06:52 Order name: Labs collected and sent; Complete Time: 06:53 tt7 01/23 06:52 Order name: O2 Per Protocol; Complete Time: 06:53 tt7 01/23 06:52 Order name: O2 Sat Monitoring; Complete Time: 06:53 tt7 01/23 08:10 Order name: Suture Tray at Bedside; Complete Time: 08:57 corie EC:05 Rate is 63 beats/min. Rhythm is regular. QRS [place] is Normal. TN interval is prolonged corie at 268 msec. QRS interval is normal. QT interval is normal. No Q waves. T waves are Normal. No ST changes noted. Clinical impression: 1st degree heart block and No evidence of ischemia. Interpreted by me. Reviewed by me. Administered Medications: 08:03 Drug: NS 0.9% IV 500 ml 500 ml IV at 1 bolus once; to be given as a bolus over 30 cc6 minutes Volume: 500 ml; Route: IV; Rate: 1 bolus; Site: right antecubital; 09:16 Follow up: Response: No adverse reaction; IV Status: Completed infusion cc6 08:42 Not Given (Vaccine up to datee): boostrix tdap0.5 ml IM once; as a single dose cc6 08:57 Drug: Acetaminophen PO 1000 mg PO once Route: PO; cc6 09:16 Follow up: Response: No adverse reaction cc6 10:06 Drug: Lidocaine-Epinephrine Infiltration -1%: (1:100,000) 5 ml 20 ml Infiltration once; cc6 to bedside {Note: given to provider.} Volume: 20 ml; Route: Infiltration; 10:09 Follow up: Response: No adverse reaction cc6 Disposition Summary: 01/23/25 08:59 Discharge Ordered Notes: Location: Home corie Problem: new corie Symptoms: have improved corie Condition: Stable corie Diagnosis - Fall on same level, unspecified corie - Laceration without foreign body of other part of head - left periorbital area corie - Abnormal findings on diagnostic imaging of other specified body structures - left corie renal mass, pituitary mass Followup: corie - With: Private Physician - When: 1 week - Reason: Recheck today's complaints, Staple/Suture removal, Re-evaluation by your physician Discharge Instructions: - Discharge Summary Sheet corie - Head Injury, Adult corie - Laceration Care, Adult corie - Laceration Care, Adult, [id number] corie - Incidental Abnormal Radiological Finding [facility] Forms: - Medication Reconciliation Form [facility] - Antibiotic Education corie - Prescription Opioid Use [facility] - Patient Portal Instructions [facility] - Leadership Thank You Letter [facility] Prescriptions: - Centany 2 % Topical ointment - apply 1 application TOPICAL route 3 times per day; 15 gram tube; Refills: 0, [facility] Product Selection Permitted - Cephalexin 500 mg Oral capsule - take 1 capsule ORAL route every 6 hours for 7 days; 28 capsule; Refills: 0, [facility] Product Selection Permitted NIH Stroke Scale - NIH Stroke Score Date: 01/23/2025 Time: 06:43 Total Score = 0 10. Dysarthria (speech clarity - read or repeat words) - 0(Normal) 11. Extinction and Inattention (visual/tactile/auditory/spatial/personal) - 0(No abnormality) 1a. Level of Consciousness (LOC) - 0(Alert) 1b. Level of Consciousness (LOC) (Month \T\ Age) - 0(Both) 1c. LOC Commands (Open \T\ Closes Eyes/Data Base Administrator) - 0(Both) 2. Best Gaze (Lateral Gaze Paresis) - 0(Normal) 3. Visual Field Loss - 0(No visual loss) 4. Facial Palsy - 0(Normal) 5a. Left Arm: Motor (10-second hold) - 0(No drift) 5b. Right Arm: Motor (10-second hold) - 0(No drift) 6a. Left Leg: Motor (5-second hold - always test supine) - 0(No drift) 6b. Right Leg: Motor (5-second hold - always test supine) - 0(No drift) 7. Limb Ataxia (finger/nose \T\ heel/wills - test with eyes open) - 0(Absent) 8. Sensory Loss (pinprick arms/legs/face) - 0(Normal) 9. Best Language: Aphasia (description/naming/reading) - 0(No aphasia) Initials: nh2 Signatures: Dispatcher [employer] EDMS Bin Reynoso MD MD cha Cardoza, Cassandra RN RN cc6 Chip Art Jr, RN RN nh2 Michael Huitron DO DO tt7 Corrections: (The following items were deleted from the chart) 07:29 07:20 Head C Spine Cap Wo Con+[id number].BRZ ordered. EDMS EDMS
--- NOTE | 2025-01-23 09:00 | ER ---
Nurse's Notes [facility] Name: Heather Lynne Age: 85 yrs Sex: Female : 1940 Arrival Date: 01/23/2025 Time: 06:32 Bed 5 Private MD: Diagnosis: Fall on same level, unspecified;Laceration without foreign body of other part of head-left periorbital area;Abnormal findings on diagnostic imaging of other specified body structures-left renal mass, pituitary mass Presentation: 01/23 06:36 Chief complaint: EMS states: states pt experienced dizziness while getting up to use nh2 the restroom with a fall just REMOTE INPATIENT CODER. Coronavirus screen: Client denies travel out of the [place] in the last 14 days. At this time, the client does not indicate any symptoms associated with coronavirus-19. Ebola Screen: Patient denies travel to an Ebola-affected area in the 21 days before illness onset. No symptoms or risks identified at this time. Initial Sepsis Screen: Does the patient meet any 2 criteria? No. Patient's initial sepsis screen is negative. Does the patient have a suspected source of infection? No. Patient's initial sepsis screen is negative. Risk Assessment: Do you want to hurt yourself or someone else? Patient reports no desire to harm self or others. Onset of symptoms was January 23, 2025. 06:36 Method Of Arrival: EMS: [facility] nh2 06:36 Acuity: DOLLY 3 nh2 06:36 Care prior to arrival: Cervical collar in place. nh2 Triage Assessment: 06:38 General: Appears uncomfortable, Behavior is calm, cooperative, appropriate for age, nh2 Denies. Pain: Complains of pain in Left knee Pain does not radiate. Pain currently is 7 out of 10 on a pain scale. Quality of pain is described as aching, Pain began 1 hour ago. Is continuous. EENT: No signs and/or symptoms were reported regarding the EENT system. Neuro: Level of Consciousness is awake, alert, obeys commands, Oriented to person, place, time, situation, Appropriate for age Personnel Assistant are equal bilaterally Moves all extremities. Speech is normal, Facial symmetry appears normal, Reports dizziness, headache. Cardiovascular: Denies chest pain, Patient's skin is warm and dry. Respiratory: Respiratory effort is even, unlabored, Denies shortness of breath. GI: Abdomen is round non-distended, Patient currently denies nausea, vomiting. : No signs and/or symptoms were reported regarding the genitourinary system. Derm: Skin is pink, warm \T\ dry. Musculoskeletal: Circulation, motion, and sensation intact. Injury Description: Laceration sustained to left eye is superficial, 0.5 to 2.5 cm long, was sustained 30-60 minutes ago. a small amount of bleeding noted at this time. 06:38 Injury Description: skin tear to the left upper arm. nh2 Historical: - Allergies: 06:38 PENICILLINS; nh2 06:38 Sulfa (Sulfonamide Antibiotics); nh2 06:38 Macrobid; nh2 - PMHx: 06:38 Hypertensive disorder; nh2 - PSHx: 06:38 knee replacement x2; shoulder surgery; nh2 - Immunization history:: Adult Immunizations up to date. - Infectious Disease History:: Denies. - Social history:: Smoking status: Patient denies any tobacco usage or history of. - Family history:: not pertinent. Screenin:43 [facility] ED Fall Risk Assessment (Adult) History of falling in the last 3 months, nh2 including since admission Yes- single mechanical fall (1 pt) Confusion or Disorientation No (0 pts) Intoxicated or Sedated No (0 pts) Impaired Gait No (0 pts) Mobility Assist Device Used No (0 pt) Altered Elimination No (0 pt) Score/Fall Risk Level 0 - 2 = Low Risk Oriented to surroundings, Maintained a safe environment, Educated pt \T\ family on fall prevention, incl call for assistance when getting out of bed, Assessed \T\ reinforced patient's understanding of fall precautions. Abuse screen: Denies threats or abuse. Denies injuries from another. Nutritional screening: No deficits noted. Tuberculosis screening: No symptoms or risk factors identified. Assessment: 06:43 Reassessment: see triage. nh2 07:35 Reassessment: Patient and/or family updated on plan of care and expected duration. Pain cc6 level reassessed. Patient is alert, oriented x 3, equal unlabored respirations, skin warm/dry/pink. 08:30 Reassessment: Patient and/or family updated on plan of care and expected duration. Pain cc6 level reassessed. Patient is alert, oriented x 3, equal unlabored respirations, skin warm/dry/pink. 09:45 Reassessment: Patient and/or family updated on plan of care and expected duration. Pain cc6 level reassessed. Patient is alert, oriented x 3, equal unlabored respirations, skin warm/dry/pink. Vital Signs: 06:36 BP 153 / 100; Pulse 62; Resp 18; Temp 98; Pulse Ox 100% on R/A; nh2 09:08 BP 108 / 73; Pulse 62; Resp 16; Pulse Ox 100% on R/A; cc6 10:07 BP 179 / 69; Pulse 70; Resp 18; Pulse Ox 100% on R/A; cc6 Cheyenne Coma Score: 06:43 Eye Response: spontaneous(4). Motor Response: obeys commands(6). Verbal Response: nh2 oriented(5). Total: 15. NIH Stroke Scale Scores: 06:43 NIHSS Score: 0 nh2 ED Course: 06:36 Patient arrived in ED. nh2 06:37 Michael Huitron DO is Attending Physician. tt7 06:38 Triage completed. nh2 06:42 No provider procedures requiring assistance completed. Inserted saline lock: 20 gauge km10 in right antecubital area, using aseptic technique. Blood collected. Flushed with 10 mL NS. 06:42 Patient has correct armband on for positive identification. Bed in low position. Call km10 light in reach. Side rails up X2. Provided Education on: plan of care. Client placed on continuous cardiac and pulse oximetry monitoring. NIBP monitoring applied. environmental monitoring specialist on. Door closed. Noise minimized. Warm blanket given. Pillow given. 06:47 Arm band placed on right wrist. nh2 06:51 Chip Art Jr, RN is Primary Nurse. nh2 07:11 XRAY Chest (1 view) In Process Unspecified. EDMS 07:14 Attending Physician role handed off by Michael Huitron DO corie 07:14 Bin Reynoso MD is Attending Physician. corie 07:27 CT Head C Spine In Process Unspecified. EDMS 07:34 Chest Abd Pelvis Wo Con In Process Unspecified. EDMS Administered Medications: 08:03 Drug: NS 0.9% IV 500 ml 500 ml IV at 1 bolus once; to be given as a bolus over 30 cc6 minutes Volume: 500 ml; Route: IV; Rate: 1 bolus; Site: right antecubital; 09:16 Follow up: Response: No adverse reaction; IV Status: Completed infusion cc6 08:42 Not Given (Vaccine up to datee): boostrix tdap0.5 ml IM once; as a single dose cc6 08:57 Drug: Acetaminophen PO 1000 mg PO once Route: PO; cc6 09:16 Follow up: Response: No adverse reaction cc6 10:06 Drug: Lidocaine-Epinephrine Infiltration -1%: (1:100,000) 5 ml 20 ml Infiltration once; cc6 to bedside {Note: given to provider.} Volume: 20 ml; Route: Infiltration; 10:09 Follow up: Response: No adverse reaction cc6 Medication: 06:43 VIS not applicable for this client. nh2 Outcome: 08:59 Discharge ordered by MD. fontenot 10:08 Patient left the ED. cc6 NIH Stroke Scale - NIH Stroke Score Date: 01/23/2025 Time: 06:43 Total Score = 0 10. Dysarthria (speech clarity - read or repeat words) - 0(Normal) 11. Extinction and Inattention (visual/tactile/auditory/spatial/personal) - 0(No abnormality) 1a. Level of Consciousness (LOC) - 0(Alert) 1b. Level of Consciousness (LOC) (Month \T\ Age) - 0(Both) 1c. LOC Commands (Open \T\ Closes Eyes/Traveler Changer) - 0(Both) 2. Best Gaze (Lateral Gaze Paresis) - 0(Normal) 3. Visual Field Loss - 0(No visual loss) 4. Facial Palsy - 0(Normal) 5a. Left Arm: Motor (10-second hold) - 0(No drift) 5b. Right Arm: Motor (10-second hold) - 0(No drift) 6a. Left Leg: Motor (5-second hold - always test supine) - 0(No drift) 6b. Right Leg: Motor (5-second hold - always test supine) - 0(No drift) 7. Limb Ataxia (finger/nose \T\ heel/wills - test with eyes open) - 0(Absent) 8. Sensory Loss (pinprick arms/legs/face) - 0(Normal) 9. Best Language: Aphasia (description/naming/reading) - 0(No aphasia) Initials: nh2 Signatures: Dispatcher [employer] EDMS Bin Reynoso MD MD cha Cardoza, Cassandra, RN RN cc6 Chip Art Jr, RN RN nh2 Sherry Peña RN RN km10 Michael Huitron, DO FINNEGAN tt7 Corrections: (The following items were deleted from the chart) 06:42 06:38 Derm: Skin is pink, warm \T\ dry. nh2 nh2 06:48 06:36 Chief complaint: EMS states: states pt experienced dizziness while trying nh2 to use the restroom with a fall just REMOTE INPATIENT CODER nh2
[2025-01-23 10:15] VITALS: TEMP 98; O2SAT 100
[2025-01-23 10:17] VITALS: BP 179/69
== END 2025-01-23 10:08 | disposition home or self-care (01) ==
LOC: ER 06:32
DX: S01.112A Laceration without foreign body of left eyelid and periocular area, initial encounter (principal); R93.89 Abnormal findings on diagnostic imaging of other specified body structures; W18.30XA Fall on same level, unspecified, initial encounter
CPT/HCPCS: 93005; 85025; 80048; 36415; 81003; 84484; 83880; 70450; 71250; 72125; 74176; 71045; 96360; 99285; 12011; J7040; 90715